=== PATIENT | female | born 2000 | race Caucasian/White ===

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

== ENCOUNTER 2021-01-25 19:52 | Emergency (ER) | payer MEDICAID, SELFPAY ==
[2021-01-25 19:54] VITALS: BP 113/82; PULSE 120; RESP 18; TEMP 36.8; O2SAT 98; BMI 26.5
[2021-01-25 22:55] LABS: Basophils % 0.4 %; Eosinophils # 0.1 10^3/uL (0.0-0.8); Eosinophils % 0.6 %; Hematocrit 38.3 % (37.0-47.0); Hemoglobin 12.4 g/dL (11.5-15.3); Lymphocytes # 0.8 10^3/uL (1.5-6.5); Lymphocytes % 10.3 %; Mean Corpuscular HGB Conc 32.4 g/dL (30.0-36.0); Mean Corpuscular Hemoglobin 26.6 pg (28.0-34.0); Mean Platelet Volume 10.5 fL (7.4-10.4); Monocytes # 0.4 10^3/uL (0.2-0.9); Monocytes % 4.6 %; Neutrophils # 6.81 10^3/uL (1.8-8.0); Neutrophils % 83.9 %; Nucleated Red Blood Cells % 0 %; Platelet Count 259 10^3/cmm (130-400); Red Blood Count 4.67 10^6/uL (4.1-5.3); Red Cell Distribution Width 17.2 % (12.1-15.1); White Blood Count 8.1 10^3/uL (4.5-13.0)
[2021-01-25 23:18] LABS: Alanine Aminotransferase 38 U/L (0-33); Albumin Level 3.8 g/dL (3.5-5.2); Alkaline Phosphatase 69 IU/L (35-105); Anion Gap 15.5 (5-19); Aspartate Amino Transferase 43 U/L (0-32); Blood Urea Nitrogen 4 mg/dL (6-20); Calcium 8.8 mg/dL (8.5-10.5); Carbon Dioxide 22 mmol/L (22-29); Chloride 101 mmol/L (98-107); Globulin 3.3 g/dL (1.3-4.6); Glomerular Filtration Rate 286.6 mL/min (90-130); Glucose 76 mg/dL (65-115); Lipase 11 U/L (13-60); Osmolality Calculated 276 mOsm/kg (285-295); Potassium 3.5 mmol/L (3.5-5.1); Sodium 135 mmol/L (136-145); Total Bilirubin 0.8 mg/dL (0.15-1.2); Total Protein 7.1 g/dL (6.6-8.7)
[2021-01-25 23:22] VITALS: BP 113/64; PULSE 111; RESP 20; O2SAT 98
--- NOTE | 2021-01-25 23:32 | ED_ITS ---
HPI - Nausea/Vomiting/Diarrhea General: Chief complaint: Nausea/Vomiting/Diarrhea Stated complaint: SOB/N/V Time Seen by Provider: 01/25/21 21:41 History of Present Illness: HPI Narrative: Patient is a 20-year-old ,4 female that is currently 14 weeks but is having some lower abdominal pain, nausea/vomiting and shortness of breath. 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 Yesterday patient received the first COVID-19 vaccination. Today she woke up and was nauseous and vomited multiple times throughout the day today. She has not been able to keep anything down all day. She also states she has experienced some mild shortness of breath today as well. Abdominal pain is located bilaterally in the lower abdomen/pelvic region. Denies any vaginal bleeding or discharge. Denies fever, chills, chest pain, cough, bladder or bowel symptoms. Associated nausea: Yes Associated symtoms: Reports nausea; Denies change in vision, chest pain, dysuria, fatigue, headache(s) or palpitations Review of Systems Const: Denies: fever(s), chills or fatigue Eyes: Denies: change in vision or eye discomfort ENMT: Denies: throat pain, odynophagia, nasal discharge or nasal congestion Card: Denies: chest pain, palpitations, edema, swelling of feet/ankles, dyspnea on exertion or orthopnea Resp: Reports: dyspnea; Denies: productive cough or non-productive cough GI: Reports: abdominal pain (bilateral lower abdomen), nausea, vomiting and GI cramping; Denies: diarrhea, constipation or hematochezia : Denies: flank pain, dysuria, hematuria, genital lesions, vaginal bleeding or vaginal discharge Musc: Denies: neck pain, back pain or extremity swelling Skin/Breast: Denies: rash or new lesions Neuro: Denies: headache(s), numbness in extremities or weakness in extremities PFSH ED PFSH: Surgical History No pertinent past surgical history Family History Denies family history of Colon cancer Ovarian cancer Diabetes Heart disease Hypercholesteremia Breast cancer Hypertension Uterine cancer Stroke Social History Smoking and tobacco status: current every day smoker e-cigarettes E-Cigarette Details: vaporizer device and with nicotine Quit status (tobacco): not considering quitting Second hand smoke exposure: No Alcohol intake: never Adopted: Yes Lives independently: Yes Household members: other Housing: Manufactured/Mobile home Highest education level completed: 12th Grade, No Diploma service: No Current occupational status: unemployed Pets and animals: Yes Sexually active: Yes Current gender identity: Female Special sharon needs: No Physical Exam Const: COMMON NORMALS: no acute distress, patient oriented x3, healthy appea ring and alert GENERAL APPEARANCE: cooperative and comfortable HENMT: COMMON NORMALS: normocephalic HEAD & SCALP: normocephalic MOUTH: Normal oral and palatal mucosa present THROAT: posterior oropharynx normal and uvula midline Neck/C-Spine: COMMON NORMALS: supple GENERAL: Yes normal visual inspection Resp: COMMON NORMALS: normal respiratory effort, No retractions, No use of accessory muscles and clear to auscultation bilaterally AUSCULTATION: clear to auscultation bilaterally Cardio: COMMON NORMALS: regular rate, regular rhythm, S1 normal heart sound present, S2 normal heart sound present, No gallops present (Cardio), No clicks present (Cardio), No murmurs present (Cardio) and Peripheral pulses 2+ throughout RATE: regular rate RHYTHM: regular rhythm HEART SOUNDS: S1 normal heart sound present and S2 normal heart sound present PERIPHERAL PULSES: Peripheral pulses 2+ throughout GI: COMMON NORMALS: Normal to inspection, nondistended, normoactive bowel sounds present, Soft to palpation, non-tender and no masses PALPATION: Yes Soft to palpation : COMMON NORMALS: Yes no CVA tenderness BLADDER/KIDNEY EXAM: Yes no CVA tenderness Back/Pelvis: COMMON NORMALS: no CVA tenderness Extremity: COMMON NORMALS: normal to inspection Neuro: COMMON NORMALS: patient oriented x3 and moves all extremities SENSORIUM/ORIENTATION: Yes alert Skin: GENERAL SKIN EXAM: dry skin Course ED course: Dr. Veras performed a bedside ultrasound on patient and it showed IUP with a heart rate of 146. Vital Signs: Vital signs: Vital Signs Temperature 98.3 F 01/25/21 19:54 Pulse Rate 110 H 01/26/21 00:59 Respiratory Rate 18 01/26/21 00:59 Blood Pressure 120/74 01/26/21 00:59 Pulse Oximetry 100 01/26/21 00:59 MDM - Nausea/Vomiting/Diarrhea MDM Narrative: Medical decision making narrative: Patient is a 20-year-old female who is currently 14 weeks and comes to the ED with nausea vomiting and lower abdominal cramping pain. Patient says that yesterday she received her first COVID-19 vaccine dose and today she woke up with nausea and vomiting had trouble keeping anything down. She is also complaining of having some lower abdominal cramping pain but denies any vaginal bleeding or discharge. Vital stable. Patient appears in no acute distress or pain and is sitting comfortably on exam bed monitor the room. The rest of exam is benign. CBC, CMP are unremarkable. UA was positive for trichomonas. Patient denies any vaginal bleeding, vaginal discharge, genital lesions. Bedside ultrasound performed by Dr. Veras showed an intrauterine with a heart rate of around 146 bpm. While here in the ED patient was given single dose of Flagyl to treat tri chomonas and was told that she needs to have her partner treated as well. Some of her symptoms could be due to the COVID-19 shot, since its common that people do not feel that great the next day after getting shot. She was also given IV fluids and Reglan and her nausea improved and she was able to keep p.o. fluids down. Patient was diagnosed with trichomonal vaginitis and and nausea and vomiting during and discharged home. I sent patient home with a prescription for Reglan to help with nausea. She was told to follow-up with her OB doctor in the next 3 to 5 days for further evaluation. Return ED precautions given. Patient understood and agree with plan. Lab Data: Attestation: I reviewed the patient's lab results. Labs: Lab Results 01/25/21 01/25/21 01/25/21 22:28 22:28 22:50 WBC 8.1 10^3/uL 10^3/ uL (4.5-13.0) RBC 4.67 10^6/uL 10^6 /uL (4.1-5.3) Hgb 12.4 g/dL g/dL (11.5-15.3) Hct 38.3 % % (37.0-47.0) MCV 82.0 fl fl (81-99) MCH 26.6 pg L pg (28.0-34.0) MCHC 32.4 g/dL g/dL (30.0-36.0) RDW 17.2 % H % (12.1-15.1) Plt Count 259 10^3/cmm 10^3 /cmm (130-400) MPV 10.5 fL H fL (7.4-10.4) Neut % (Auto) 83.9 % % Lymph % (Auto) 10.3 % % [place] % (Auto) 4.6 % % Eos % (Auto) 0.6 % % Baso % (Auto) 0.4 % % Neut # (Auto) 6.81 10^3/uL 10^3 /uL (1.8-8.0) Lymph # (Auto) 0.8 10^3/uL L 10^ 3/uL (1.5-6.5) [place] # (Auto) 0.4 10^3/uL 10^3/ uL (0.2-0.9) Eos # (Auto) 0.1 10^3/uL 10^3/ uL (0.0-0.8) Baso # (Auto) 0.0 10^3/uL 10^3/ uL (0.0-0.1) Nucleated RBC % (a uto) 0 % % Nucleated RBCs # 0.0 /100WBC /100W BC Sodium 135 mmol/L L mmol /L (136-145) Potassium 3.5 mmol/L mmol/L (3.5-5.1) Chloride 101 mmol/L mmol/L (98-107) Carbon Dioxide 22 mmol/L mmol/L (22-29) Anion Gap 15.5 (5-19) BUN 4 mg/dL L mg/dL (6-20) Creatinine 0.3 mg/dL L mg/dL (0.5-0.9) GFR Calculation 286.6 mL/min H mL /min (90-130) Glucose 76 mg/dL mg/dL (65-115) Calculated Osmolal ity 276 mOsm/kg L mOs m/kg (285-295) Calcium 8.8 mg/dL mg/dL (8.5-10.5) Total Bilirubin 0.8 mg/dL mg/dL (0.15-1.2) AST 43 U/L H U/L (0-32) ALT 38 U/L H U/L (0-33) Alkaline Phosphata se 69 IU/L IU/L (35-105) Total Protein 7.1 g/dL g/dL (6.6-8.7) Albumin 3.8 g/dL g/dL (3.5-5.2) Globulin 3.3 g/dL g/dL (1.3-4.6) Lipase 11 U/L L U/L (13-60) Urine Color Yellow (Yellow) Urine Appearance Hazy A (CLEAR) Urine pH 6.5 (5-7) Ur Specific Gravit y 1.020 (1.005-1.030) Urine Protein Neg (Negative) Urine Glucose (UA) Norm (Normal) Urine Ketones 2+ H (Negative) Urine Blood 2+ H (Negative) Urine Nitrate Negative (Negative) Urine Bilirubin 1+ H (Negative) Urine Urobilinogen 4 mg/dL H mg/dL (Negative) Ur Leukocyte Olga ase 2+ H (Negative) Urine RBC 0-4 /hpf H /hpf (0-2) Urine WBC >100 /hpf H /hpf (0-5) Ur Squamous Epith Cells 15-25 /hpf H /hpf (0-5) Amorphous Sediment Not Reportable Urine Bacteria 1+ /hpf H /hpf (NONE) Urine Trichomonas 2+ /hpf H /hpf Discharge Plan Discharge Patient Disposition: Home Clinical Impression: Nausea and vomiting during Trichomonal vaginitis in Qualifiers: Trimester: second trimester Qualified Code(s): O23.592 - Infection of other part of genital tract in , second trimester Condition: Stable Prescriptions: New Reglan 10 mg tablet 10 mg PO Q6H PRN (Reason: nausea and vomiting) Qty: 12 RF: 0 No Action prednisone 20 mg tablet 40 mg PO DAILY Qty: 10 RF: 0 sulfamethoxazole-trimethoprim [Bactrim DS] 800-160 mg tablet 1 tab PO BID Qty: 20 RF: 0 Discharge Orders: Discharge ED (Routine); Ordered 01/26/21 Ordered By: Yoandy Moser Referrals: Ksenia Salmon MD [Primary Care Provider] - Discharge Diet: Regular Discharge Activity: Resume usual activity Patient Instructions: Nausea and Vomiting in (ED), Trichomoniasis (ED) Activity Restrictions/Additional Instructions: Follow-up with OB provider in the next 3 to 5 days for reevaluation. Make sure you have your partner get tested and treated for trichomonas as well. Take medications as prescribed. Make sure you drink plenty fluids and stay hydrated. Return to the ER or your medical provider if condition worsens. Please read and understand discharge instructions. Thank you for choosing [facility] for your healthcare needs today. Please realize this is an emergency room and that we are providing you with a medical screening exam and this may not be complete and all inclusive of all the testing and or work up that you may need to determine your ailment or severity of your illness. It is very important that you follow up as instructed or that you return to the Emergency Department should you have concerns or if your condition changes or worsens in any way. Coding Level of Care Code ED E Commerce Solution Architect for Yaz Elizalde Exam Comprehensive
[2021-01-25 23:36] LABS: Add Urine Microscopic? YES; Bacteria Urine 1+ /hpf; Bilirubin Urine 1+ (Negative); Blood Urine 2+ (Negative); Glucose Urine UA Norm (Normal); Ketones Urine 2+ (Negative); Leukocyte Esterase Urine 2+ (Negative); Nitrate Urine Negative (Negative); Protein Urine Neg (Negative); RBC Urine 0-4 /hpf (0-2); Trichomonas Urine 2+ /hpf; Urine Appearance Hazy (CLEAR); Urine Color Yellow (Yellow); Urobilinogen Urine 4 mg/dL (Negative); WBC Urine >100 /hpf (0-5); pH Urine 6.5 (5-7)
[2021-01-25 23:37] LABS: Add Urine Culture? No; Squamous Epithelial Cell Urine 15-25 /hpf (0-5)
[2021-01-25] MEDS: metoclopramide 5 mg/mL SDV 2 mL 10 MG IVP (23:42)
[2021-01-25] MEDS: sodium chloride 0.9% 1,000 ML 999 ML IV (23:42)
[2021-01-25 23:44] VITALS: BP 120/71; PULSE 108; RESP 18; O2SAT 100
[2021-01-26 00:59] VITALS: BP 120/74; PULSE 110; RESP 18; O2SAT 100
== END 2021-01-26 00:50 | disposition home or self-care (01) ==
PROVIDERS: Emergency Medicine; Emergency Provider Physician Assistant; PCP Family Medicine
DX: R11.2 Nausea with vomiting, unspecified (principal); O23.592 Infection of other part of genital tract in pregnancy, second trimester; Z3A.14 14 weeks gestation of pregnancy; F17.290 Nicotine dependence, other tobacco product, uncomplicated
CPT/HCPCS: 80053; 81001; 83690; 85025; 96361; 96374; 99284; J2765; J7030

== ENCOUNTER 2021-02-10 07:41 | Emergency (ER) | payer MEDICAID, SELFPAY ==
[2021-02-10 08:06] VITALS: BP 115/58; PULSE 119; RESP 18; TEMP 37.1; O2SAT 95; BMI 23.3
--- NOTE | 2021-02-10 08:21 | ED_ITS ---
HPI - SOB/Dyspnea General: Chief Complaint: Shortness of Breath/Dyspnea Stated Complaint: 16 WKS PREG/GENITAL HERPES BREAKOUT Time Seen by Provider: 02/10/21 08:03 History of Present Illness: HPI Narrative: SOB increasing over the best few days due to cough and herpes outbreak on genitals MD elicited complaint: shortness of breath and cough Timing: intermittent Severity: moderate Exacerbating factors: nothing Associated symptoms: Reports no associated symptoms; Deny chest pain or fever(s) Review of Systems Const: Denies: fever(s) Card: Denies: chest pain PFSH ED PFSH: Surgical History No pertinent past surgical history Family History Denies family history of Colon cancer Ovarian cancer Diabetes Heart disease Hypercholesteremia Breast cancer Hypertension Uterine cancer Stroke Social History Smoking and tobacco status: current every day smoker e-cigarettes E-Cigarette Details: vaporizer device and with nicotine Quit status (tobacco): not considering quitting Second hand smoke exposure: No Alcohol intake: never Adopted: Yes Lives independently: Yes Household members: other Housing: Manufactured/Mobile home Highest education level completed: 12th Grade, No Diploma service: No Current occupational status: unemployed Pets and animals: Yes Sexually active: Yes Current gender identity: Female Special sharon needs: No Female Reproductive History: Date of last menstrual period: 10/18/20 Physical Exam Const: COMMON NORMALS: no acute distress, patient oriented x3, no limitations and alert GENERAL APPEARANCE: cooperative and comfortable ORIENTATION/CONSCIOUSNESS: Yes awake, Yes oriented to person, Yes oriented to place and Yes oriented to time HENMT: COMMON NORMALS: normocephalic, atraumatic, external ears normal, EAC's normal, TM's normal bilaterally and Normal external nose present HEAD & SCALP: normal to inspection, normocephalic and atraumatic FACE & SINUS: normal facial exam, sinuses nontender and face symmetric NOSE: Normal external nose present, Normal nares present and No nasal discharge present EXTERNAL EAR: Yes external ears normal EXTERNAL AUDITORY CANAL: EAC's normal TYMPANIC MEMBRANE: TM's normal bilaterally MOUTH: Normal oral and palatal mucosa present, lip normal and tongue normal THROAT: posterior oropharynx normal, tonsils normal and uvula midline Eye: COMMON NORMALS: Equal, round and reactive pupils present, EOMs intact bilaterally and conjunctivae normal GENERAL EYE: appearance normal, both eyes and all related structures and normal light reflex EYELID: eyelids normal CONJUNCTIVA: Yes conjunctivae normal PUPIL: Yes Equal, round and reactive pupils present EOM: Yes EOM abnormal DIRECT OPHTHALMOSCOPY: Yes normal light reflex Neck/C-Spine: COMMON NORMALS: full ROM, no lymphadenopathy, supple, no meningeal signs, no JVD and Thyroid normal GENERAL: Yes normal visual inspection THYROID: Thyroid normal CERVICAL SPINE: Yes cervical ROM normal and Yes normal cervical lordosis Lymph: LYMPHATIC: no lymphadenopathy noted Chest: COMMONS NORMALS: normal inspection of the chest Resp: COMMON NORMALS: normal respiratory effort and clear to auscultation b ilaterally EFFORT & INSPECTION: Yes able to speak in complete sentences AUSCULTATION: clear to auscultation bilaterally and diminished lung sounds Cardio: COMMON NORMALS: no JVD, regular rate, regular rhythm, S1 normal heart sound present, S2 normal heart sound present, No gallops present (Cardio), No clicks present (Cardio), No murmurs present (Cardio), No rub (Cardio) and Peripheral pulses 2+ throughout RATE: regular rate RHYTHM: regular rhythm HEART SOUNDS: S1 normal heart sound present and S2 normal heart sound present PERIPHERAL PULSES: Peripheral pulses 2+ throughout GI: COMMON NORMALS: Normal to inspection, nondistended, normoactive bowel sounds present, Soft to palpation, non-tender and no masses PALPATION: Yes Soft to palpation : COMMON NORMALS: Yes no CVA tenderness and Yes normal external appearance BLADDER/KIDNEY EXAM: Yes no CVA tenderness Back/Pelvis: COMMON NORMALS: no CVA tenderness, thoracic and lumbar spine normal to inspection, no thoracic nor lumbar tenderness and thoraco-lumbar ROM normal Extremity: COMMON NORMALS: normal to inspection, full ROM, capillary refill normal, no joint enlargement, no clubbing, cyanosis or edema, no calf tenderness and no pedal edema GENERAL: Yes normal exam except as noted Neuro: COMMON NORMALS: patient oriented x3, moves all extremities, no focal motor deficits, no sensory deficits noted and gait normal SENSORIUM/ORIENTATION: Yes alert, Yes oriented to person, Yes oriented to place and Yes oriented to time MENINGEAL SIGNS: Yes no meningeal signs Psych: COMMON NORMALS: mental status grossly normal, Normal thought process present, cooperative, normal affect, speech normal and activity/motor behavior normal SPEECH: Yes normal speech THOUGHT PROCESS: Normal thought process present Skin: COMMON NORMALS: no rashes or lesions noted, no wounds and turgor normal GENERAL SKIN EXAM: no rashes or lesions noted and turgor normal Course ED course: Pt presents to ER with complaints of genital herpes outbreak and increase in cough and SOB. 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 She is nervous that she may have another miscarriage as she has had 4 previously. Lung sounds are clear but diminished. I will call OB director of online merchandising to discuss herpes treatment plan and suppression therapy as well as CXR vs treatment as pt has recently been on antibiotics for UTI but is unsure of what kind. Awaiting labs and UA. Reevaluation(s): Reevaluation #1: UA reveals UTI remains with 2 plus leukoesterase and positive trichamoniasis. CXR is normal. Awaiting cbc and cmp. Time: 09:34 Reevaluation #2: Dr. Salmon is pt OB; instructed that we are treating for herpes outbreak, STD (plus partner), and UTI. We will DC with close follow up with her OB in the next week. Time: 10:07 Vital Signs: Vital signs: Vital Signs Temperature 98.7 F 02/10/21 08:25 Pulse Rate 89 02/10/21 09:45 Respiratory Rate 16 02/10/21 09:45 Blood Pressure 128/61 02/10/21 09:30 Pulse Oximetry 98 02/10/21 09:45 MDM - SOB/Dyspnea Lab Data: Labs: Lab Results 02/10/21 02/10/21 09:00 09:15 Sodium 134 mmol/L L mmol /L (136-145) Potassium 3.6 mmol/L mmol/L (3.5-5.1) Chloride 103 mmol/L mmol/L (98-107) Carbon Dioxide 18 mmol/L L mmol/ L (22-29) Anion Gap 16.6 (5-19) BUN 2 mg/dL L mg/dL (6-20) Creatinine 0.2 mg/dL L mg/dL (0.5-0.9) GFR Calculation 457.6 mL/min H mL /min (90-130) Glucose 77 mg/dL mg/dL (65-115) Calculated Osmolal ity 273 mOsm/kg L mOs m/kg (285-295) Calcium 7.6 mg/dL L mg/dL (8.5-10.5) Total Bilirubin 0.6 mg/dL mg/dL (0.15-1.2) AST 35 U/L H U/L (0-32) ALT 33 U/L U/L (0-33) Alkaline Phosphata se 85 IU/L IU/L (35-105) Total Protein 5.9 g/dL L g/dL (6.6-8.7) Albumin 2.9 g/dL L g/dL (3.5-5.2) Globulin 3.0 g/dL g/dL (1.3-4.6) Urine Color Yellow (Yellow) Urine Appearance Hazy A (CLEAR) Urine pH 5 (5-7) Ur Specific Gravit y 1.020 (1.005-1.030) Urine Protein Neg (Negative) Urine Glucose (UA) Norm (Normal) Urine Ketones Negative (Negative) Urine Blood Neg (Negative) Urine Nitrate Negative (Negative) Urine Bilirubin 1+ H (Negative) Urine Urobilinogen 8 mg/dL H mg/dL (Negative) Ur Leukocyte Olga ase 2+ H (Negative) Urine RBC 5-10 /hpf H /hpf (0-2) Urine WBC 5-10 /hpf H /hpf (0-5) Ur Squamous Epith Cells 15-25 /hpf H /hpf (0-5) Amorphous Sediment Not Reportable Urine Bacteria 1+ /hpf H /hpf (NONE) Urine Trichomonas 2+ /hpf H /hpf Imaging Data^: CXR: Radiologist's impression: [address] [address] XRay Report Signed Patient: Jm Chaney Unit #: [id number] : 2000 Acct#:[id number] Age/Sex: 20 / F ADM Date: 02/10/21 Loc: ER Room/Bed: Attending Dr: Ordering Provider/Ordering MD: Flaquita Snowden NP Date of Service: 02/10/21 Procedure(s): XR chest 1V portable [id number] Accession Number(s): [id number] Report Number: [id number] WS: [id number] Exam: XR chest 1V portable [id number] Date/Time of Exam: 02/10/2021 8:53 AM Reason For Exam: SOB Comparison 06/13/2007. Findings: The lungs are clear and fully expanded. Costophrenic angles are sharp. No infiltrates. Bronchovascular relief appears normal. Cardiac silhouette is unremarkable. Bony elements are intact. XR/XR chest 1V portable [id number] IMPRESSION: Unremarkable chest radiograph. Dictated By: Zi Bean DO Signed By: Zi Bean DO Signed Date/Time: 02/10/21909 DD/ 9 Discharge Plan Discharge Condition: Stable Prescriptions: New nitrofurantoin monohyd/m-cryst [Macrobid] 100 mg capsule 100 mg PO BID 7 Days Qty: 14 RF: 0 metronidazole 500 mg tablet 500 mg PO Q8H 7 Days Qty: 21 RF: 0 acyclovir 800 mg tablet 800 mg PO BID 14 Days Qty: 28 RF: 0 No Action prednisone 20 mg tablet 40 mg PO DAILY Qty: 10 RF: 0 sulfamethoxazole-trimethoprim [Bactrim DS] 800-160 mg tablet 1 tab PO BID Qty: 20 RF: 0 Reglan 10 mg tablet 10 mg PO Q6H PRN (Reason: nausea and vomiting) Qty: 12 RF: 0 Referrals: Ksenia Salmon MD [Primary Care Provider] - Discharge Diet: Usual diet Discharge Activity: Resume usual activity Activity Restrictions/Additional Instructions: INCREASE WATER-Your labs show you are not getting adequate water intake. Stay away from sodas and teas. Stand Alone Forms: Work/School Release Coding Level of Care Code ED Shift Production Associate for Chg Fwd Exam Comprehensive
[2021-02-10 08:25] VITALS: BP 117/57; PULSE 115; RESP 17; TEMP 37.1; O2SAT 94
--- NOTE | 2021-02-10 08:53 | XR_ITS ---
WS: [id number] Exam: XR chest 1V portable [id number] Date/Time of Exam: 02/10/2021 8:53 AM Reason For Exam: SOB Comparison 06/13/2007. Findings: The lungs are clear and fully expanded. Costophrenic angles are sharp. No infiltrates. Bronchovascula r relief appears normal. Cardiac silhouette is unremarkable. Bony elements are intact. XR/XR chest 1V portable [id number] IMPRESSION: Unremarkable chest radiograph.
[2021-02-10 09:11] LABS: Add Urine Microscopic? YES; Bilirubin Urine 1+ (Negative); Blood Urine Neg (Negative); Glucose Urine UA Norm (Normal); Ketones Urine Negative (Negative); Leukocyte Esterase Urine 2+ (Negative); Nitrate Urine Negative (Negative); Protein Urine Neg (Negative); Urine Appearance Hazy (CLEAR); Urine Color Yellow (Yellow); Urobilinogen Urine 8 mg/dL (Negative); pH Urine 5 (5-7)
[2021-02-10 09:23] LABS: Bacteria Urine 1+ /hpf; Squamous Epithelial Cell Urine 15-25 /hpf (0-5); Trichomonas Urine 2+ /hpf
[2021-02-10 09:24] LABS: Add Urine Culture? No
[2021-02-10 09:24] LABS: Basophils # 0.1 10^3/uL (0.0-0.1); Basophils % 0.7 %; Eosinophils # 0.1 10^3/uL (0.0-0.8); Eosinophils % 0.7 %; Hematocrit 31.5 % (37.0-47.0); Lymphocytes % 51.9 %; Mean Corpuscular HGB Conc 31.7 g/dL (30.0-36.0); Mean Corpuscular Hemoglobin 26.3 pg (28.0-34.0); Mean Corpuscular Volume 82.9 fl (81-99); Mean Platelet Volume 9.5 fL (7.4-10.4); Monocytes # 0.6 10^3/uL (0.2-0.9); Monocytes % 4.3 %; Neutrophils # 5.63 10^3/uL (1.8-8.0); Nucleated Red Blood Cells % 0 %; Platelet Count 283 10^3/cmm (130-400); Red Cell Distribution Width 18.9 % (12.1-15.1); White Blood Count 13.4 10^3/uL (4.5-13.0)
[2021-02-10 09:30] VITALS: BP 128/61; PULSE 109; RESP 19; O2SAT 97
[2021-02-10] MEDS: acyclovir 800 mg Tablet PO (09:32)
[2021-02-10 09:45] VITALS: PULSE 88; PULSE 89; RESP 16; O2SAT 97; O2SAT 98
[2021-02-10 09:47] LABS: Alanine Aminotransferase 33 U/L (0-33); Albumin Level 2.9 g/dL (3.5-5.2); Alkaline Phosphatase 85 IU/L (35-105); Anion Gap 16.6 (5-19); Aspartate Amino Transferase 35 U/L (0-32); Blood Urea Nitrogen 2 mg/dL (6-20); Calcium 7.6 mg/dL (8.5-10.5); Carbon Dioxide 18 mmol/L (22-29); Chloride 103 mmol/L (98-107); Glomerular Filtration Rate 457.6 mL/min (90-130); Glucose 77 mg/dL (65-115); Osmolality Calculated 273 mOsm/kg (285-295); Potassium 3.6 mmol/L (3.5-5.1); Sodium 134 mmol/L (136-145); Total Bilirubin 0.6 mg/dL (0.15-1.2); Total Protein 5.9 g/dL (6.6-8.7)
[2021-02-10 10:15] LABS: Slide Review Slide Review Perform
[2021-02-10 10:16] VITALS: BP 121/67; PULSE 117; RESP 18; O2SAT 97
[2021-02-10] MEDS: metroNIDAZOLE 500 MG Tablet PO (10:17)
[2021-02-10 11:02] VITALS: BP 132/68; PULSE 108; RESP 18; O2SAT 94
[2021-02-11 14:23] LABS: Coronavirus Test Green County Not Detected
== END 2021-02-10 11:03 ==
PROVIDERS: Emergency Provider Nurse Practitioner Family; PCP Family Medicine
DX: O26.892 Other specified pregnancy related conditions, second trimester (principal); R05.9 Cough, unspecified; O98.312 Other infections with a predominantly sexual mode of transmission complicating pregnancy, second trimester; A60.00 Herpesviral infection of urogenital system, unspecified; Z3A.16 16 weeks gestation of pregnancy; Z20.822 Contact with and (suspected) exposure to COVID-19
CPT/HCPCS: 71045; 80053; 81001; 85025; 87635; 94640; 99283; J7611; J8499

== ENCOUNTER 2021-02-27 00:10 | Emergency (ER) | payer MEDICAID, SELFPAY ==
[2021-02-27 00:32] VITALS: BP 115/69; PULSE 81; RESP 18; O2SAT 96; BMI 24.7
--- NOTE | 2021-02-27 02:16 | W.ED.SOB ---
HPI - SOB/Dyspnea General: Chief Complaint: Shortness of Breath/Dyspnea Stated Complaint: fever,cough,N/V Time Seen by Provider: 02/27/21 02:16 History of Present Illness: HPI Narrative: 20-year-old female comes in [facility] with complaints of sinus pressure and cough for the last 2 weeks. Patient was evaluated and treated for viral infection 2 weeks ago. At that time patient also had herpes simplex genital infection. Patient is about 16 weeks. Patient reports no improvement in sinus and cough symptoms since her evaluation 2 weeks ago. Patient came in [facility] for further evaluation and treatment. Review of Systems General: Reports: 10 or more systems reviewed and unremarkable except in HPI and below ENMT: Reports: nasal congestion Resp: Reports: non-productive cough PFSH ED PFSH: Surgical History No pertinent past surgical history Family History Denies family history of Colon cancer Ovarian cancer Diabetes Heart disease Hypercholesteremia Breast cancer Hypertension Uterine cancer Stroke Social History Smoking and tobacco status: current every day smoker e-cigarettes E-Cigarette Details: vaporizer device and with nicotine Quit status (tobacco): not considering quitting Second hand smoke exposure: No Alcohol intake: never Adopted: Yes Lives independently: Yes Household members: other Housing: Manufactured/Mobile home Highest education level completed: 12th Grade, No Diploma service: No Current occupational status: unemployed Pets and animals: Yes Sexually active: Yes Current gender identity: Female Special sharon needs: No Female Reproductive History: Date of last menstrual period: 10/18/20 Physical Exam Const: COMMON NORMALS: no acute distress and patient oriented x3 GENERAL APPEARANCE: cooperative HENMT: COMMON NORMALS: normocephalic and TM's normal bilaterally HEAD & SCALP: normal to inspection and normocephalic NOSE: Nasal discharge present TYMPANIC MEMBRANE: TM's normal bilaterally MOUTH: Normal oral and palatal mucosa present THROAT: posterior oropharynx normal Eye: GENERAL EYE: appearance normal, both eyes and all related structures Neck/C-Spine: COMMON NORMALS: full ROM Lymph: LYMPHATIC: no lymphadenopathy noted Chest: COMMONS NORMALS: normal inspection of the chest Resp: COMMON NORMALS: normal respiratory effort EFFORT & INSPECTION: Yes able to speak in complete sentences AUSCULTATION: rhonchi Cardio: COMMON NORMALS: regular rate and regular rhythm RATE: regular rate RHYTHM: regular rhythm GI: COMMON NORMALS: non-tender : COMMON NORMALS: Yes no CVA tenderness BLADDER/KIDNEY EXAM: Yes no CVA tenderness Back/Pelvis: COMMON NORMALS: no CVA tenderness and thoracic and lumbar spine normal to inspection Extremity: COMMON NORMALS: normal to inspection Neuro: COMMON NORMALS: patient oriented x3 and moves all extremities Psych: COMMON NORMALS: mental status grossly normal and cooperative Skin: COMMON NORMALS: no rashes or lesions noted GENERAL SKIN EXAM: no rashes or lesions noted Course Vital Signs: Vital signs: Vital Signs Pulse Rate 81 02/27/21 00:32 Respiratory Rate 18 02/27/21 00:32 Blood Pressure 115/69 02/27/21 00:32 Pulse Oximetry 96 02/27/21 00:32 MDM - SOB/Dyspnea MDM Narrative: Medical decision making narrative: Patient comes in today with complaints of persistent cough and congestion for 2 weeks. On exam patient is alert and oriented. Skin is warm and dry. Respirations are even. Lungs have some anterior coarse breath sounds. Patient has sinus pressure on palpation. Bilateral tympanic membranes are normal. Differential diagnosis includes rhinosinusitis, bronchitis, viral syndrome. We will treat for bacterial rhinosinusitis since patient has been ill for 10 days or greater. Patient will be given azithromycin 500 mg and then a dose of promethazine with codeine tonight. Patient can then continue with the medications as directed for the next 5 days. Encourage plenty of fluids and follow-up with primary care for further treatment and evaluation. Patient reported understanding of care plan and need for follow-up or return to the ER. Discharge Plan Discharge Patient Disposition: Home Clinical Impression: Acute rhinosinusitis, Bronchitis Condition: Stable Prescriptions: New azithromycin 250 mg tablet 250 mg PO DAILY 4 Days Qty: 4 RF: 0 promethazine-codeine 6.25-10 mg/5 mL syrup 5 ml PO Q6H PRN (Reason: cough and congestion) Qty: 118 RF: 0 No Action prednisone 20 mg tablet 40 mg PO DAILY Qty: 10 RF: 0 sulfamethoxazole-trimethoprim [Bactrim DS] 800-160 mg tablet 1 tab PO BID Qty: 20 RF: 0 Reglan 10 mg tablet 10 mg PO Q6H PRN (Reason: nausea and vomiting) Qty: 12 RF: 0 Discharge Orders: Discharge ED (Routine); Ordered 02/27/21 Ordered By: Duke Munguia Referrals: Ksenia Salmon MD [Primary Care Provider] - Discharge Diet: Usual diet Discharge Activity: Increase activity as tolerated Patient Instructions: Rhinosinusitis (ED), Opioid Safety Activity Restrictions/Additional Instructions: Drink plenty of water. Take antibiotic as directed. Use acetaminophen as needed for fever and discomfort. Use promethazine with codeine for cough and congestion. Follow-up with primary care as needed for further instructions. Return to the ER for new concerns. Coding Level of Care Code ED Rental Boats Caretaker for Yaz Elizalde
[2021-02-27] MEDS: promethazine-cod syrup 6.25-10mg/5 mL UDC PO (02:35)
[2021-02-27] MEDS: azithromycin 250 mg Tablet 500 MG PO (02:35)
[2021-02-27 11:47] LABS: Adenovirus Not Detected (NOT DETECT); Chlamydia Pneumoniae Not Detected (NOT DETECT); Coronavirus 229E,HKU1,NL63,OC4 Not Detected (NOT DETECT); Human Metapneumovirus Detected (NOT DETECT); Human Rhinovirus/Enterovirus Not Detected (NOT DETECT); Influenza A Not Detected (NOT DETECT); Influenza A H1 Not Detected (NOT DETECT); Influenza A H1-2009 Not Detected (NOT DETECT); Influenza A H3 Not Detected (NOT DETECT); Influenza B Not Detected (NOT DETECT); Mycoplasma Pneumoniae Not Detected (NOT DETECT); Parainfluenza Virus Type 1 Not Detected (NOT DETECT); Parainfluenza Virus Type 2 Not Detected (NOT DETECT); Parainfluenza Virus Type 3 Not Detected (NOT DETECT); Parainfluenza Virus Type 4 Not Detected (NOT DETECT); Respiratory Syncytial Virus A Not Detected (NOT DETECT); Respiratory Syncytial Virus B Not Detected (NOT DETECT); SARS-COV-2 Not Detected (NOT DETECT)
== END 2021-02-27 02:39 | disposition home or self-care (01) ==
PROVIDERS: Emergency Provider Nurse Practitioner Family; PCP Family Medicine
DX: J01.90 Acute sinusitis, unspecified (principal); J40 Bronchitis, not specified as acute or chronic; F17.290 Nicotine dependence, other tobacco product, uncomplicated; Z20.822 Contact with and (suspected) exposure to COVID-19
CPT/HCPCS: 87635; 99283; Q0144

== ENCOUNTER 2021-04-15 21:22 | Outpatient (CLI) | payer MEDICAID, SELFPAY ==
[2021-04-15] VITALS (10 sets, daily range): BP systolic 90–117; BP diastolic 51–62; PULSE 92–117; RESP 16; TEMP 36.3; BMI 25.3
[2021-04-15 22:47] LABS: Bilirubin Urine Neg (Negative); Blood Urine 3+ (Negative); Glucose Urine UA Norm (Normal); Ketones Urine Negative (Negative); Leukocyte Esterase Urine 2+ (Negative); Nitrate Urine Negative (Negative); Protein Urine Neg (Negative); Urine Color Yellow (Yellow); Urobilinogen Urine 1 mg/dL (Negative); pH Urine 5 (5-7)
[2021-04-15 22:48] LABS: Add Urine Culture? No; Bacteria Urine 3+ /hpf; RBC Urine 25-40 /hpf (0-2); Squamous Epithelial Cell Urine 25-40 /hpf (0-5); WBC Urine 40-55 /hpf (0-5)
[2021-04-16 00:13] VITALS: BP 93/50; PULSE 85
[2021-04-16 00:25] VITALS: BP 99/57; PULSE 82; TEMP 36.3
[2021-04-16 00:50] VITALS: BP 99/57; PULSE 82; RESP 15; TEMP 36.3
== END 2021-04-16 00:50 | disposition home or self-care (01) ==
LOC: OPOB 21:22 → OBGYN 21:25
PROVIDERS: PCP Family Medicine; Visit Provider Family Medicine
DX: O26.899 Other specified pregnancy related conditions, unspecified trimester (principal); Z3A.00 Weeks of gestation of pregnancy not specified; R10.9 Unspecified abdominal pain
CPT/HCPCS: 81001; 87491; 87591; 99211

== ENCOUNTER 2021-04-30 21:31 | Outpatient (CLI) | payer MEDICAID, SELFPAY ==
[2021-04-30 21:28] VITALS: RESP 15; BMI 27.1
[2021-04-30 21:39] VITALS: BP 128/71; PULSE 108; TEMP 36.5
[2021-04-30 22:01] VITALS: BP 111/70; PULSE 100
[2021-04-30 22:10] VITALS: BP 111/70; PULSE 100; RESP 15; TEMP 36.4
[2021-04-30 22:12] LABS: Nitrazine Paper, PH Negative
--- NOTE | 2021-04-30 22:37 | PC.NURSE ---
Patient c/o vaginal bleeding starting 2 hours ago and a gush of clear fluid on the way here. Patient wearing scrub pants, no underwear or pad. White discharge noted on inside of pants. Patient states I have an infection but Dr Salmon knows about it.
== END 2021-04-30 22:10 | disposition home or self-care (01) ==
LOC: OPOB 21:32 → OBGYN 21:33
PROVIDERS: PCP Family Medicine; Visit Provider Family Medicine
DX: O46.90 Antepartum hemorrhage, unspecified, unspecified trimester (principal); Z3A.00 Weeks of gestation of pregnancy not specified; N89.8 Other specified noninflammatory disorders of vagina; Z91.81 History of falling
CPT/HCPCS: 83986; 99211

== ENCOUNTER 2021-05-11 12:25 | Outpatient (CLI) | payer MEDICAID, SELFPAY ==
[2021-05-11 12:25] VITALS: BMI 26.7
[2021-05-11 12:50] VITALS: BP 113/60; PULSE 99; RESP 18; TEMP 36.7; TEMP 36.9
[2021-05-11 13:01] VITALS: BP 113/54; PULSE 108
[2021-05-11 13:09] LABS: Actim Prom Negative
[2021-05-11 13:22] VITALS: BP 132/79; PULSE 100
[2021-05-11 13:23] LABS: Bilirubin Urine Neg (Negative); Blood Urine Neg (Negative); Glucose Urine UA Norm (Normal); Ketones Urine 1+ (Negative); Leukocyte Esterase Urine 2+ (Negative); Nitrate Urine Negative (Negative); Protein Urine Trace (Negative); Urine Appearance Clear (CLEAR); Urine Color Yellow (Yellow); Urobilinogen Urine 1 mg/dL (Negative); pH Urine 7 (5-7)
[2021-05-11 13:30] LABS: Add Urine Culture? No; Bacteria Urine 1+ /hpf; Mucus Urine 1+ /hpf; RBC Urine 0-4 /hpf (0-2); Squamous Epithelial Cell Urine 15-25 /hpf (0-5); WBC Urine 15-25 /hpf (0-5)
[2021-05-11 13:40] VITALS: BP 131/87; PULSE 104
--- NOTE | 2021-05-11 13:58 | PC.NURSE ---
1350 IV REMOVED WITH CATH INTACT, SHE CAME IN BY EMS WITH #20 IN LEFT AC SPACE.
[2021-05-11 14:03] VITALS: BP 131/87; PULSE 104; RESP 18; TEMP 36.7
== END 2021-05-11 14:00 | disposition home or self-care (01) ==
LOC: OPOB 12:48 → OBGYN 12:50
PROVIDERS: PCP Family Medicine; Visit Provider Family Medicine
DX: O26.899 Other specified pregnancy related conditions, unspecified trimester (principal); Z3A.00 Weeks of gestation of pregnancy not specified; R10.9 Unspecified abdominal pain
CPT/HCPCS: 59025; 81001; 84112; 99211

== ENCOUNTER 2021-06-15 08:30 | Outpatient (CLI) | payer MEDICAID, SELFPAY ==
[2021-06-15 08:55] VITALS: BP 116/61; PULSE 90
[2021-06-15 08:58] VITALS: BMI 28.3
[2021-06-15 08:59] VITALS: RESP 16
[2021-06-15 09:10] VITALS: BP 124/68; PULSE 113
[2021-06-15 10:10] LABS: Nitrazine Paper, PH Negative
== END 2021-06-15 09:30 | disposition home or self-care (01) ==
LOC: OPOB 08:35 → OBGYN 08:36
PROVIDERS: PCP Family Medicine; Visit Provider Family Medicine
DX: O26.899 Other specified pregnancy related conditions, unspecified trimester (principal); Z3A.00 Weeks of gestation of pregnancy not specified; N89.8 Other specified noninflammatory disorders of vagina; R10.9 Unspecified abdominal pain
CPT/HCPCS: 59025; 83986; 99211

== ENCOUNTER 2021-06-23 10:30 | Outpatient (CLI) | payer MEDICAID, SELFPAY ==
[2021-06-23 10:31] VITALS: BMI 30.8
[2021-06-23 10:59] VITALS: RESP 17; TEMP 36.7
[2021-06-23 11:08] VITALS: BP 121/69; PULSE 100
[2021-06-23 11:12] LABS: Nitrazine Paper, PH Negative
[2021-06-23 11:19] LABS: Actim Prom Negative
[2021-06-23 11:28] VITALS: BP 119/65; PULSE 100
[2021-06-23 11:48] VITALS: BP 110/71; PULSE 98
[2021-06-23 12:00] LABS: Bilirubin Urine Neg (Negative); Blood Urine Neg (Negative); Glucose Urine UA Norm (Normal); Ketones Urine 1+ (Negative); Leukocyte Esterase Urine 2+ (Negative); Nitrate Urine Negative (Negative); Protein Urine Neg (Negative); RBC Urine 0-4 /hpf (0-2); Specific Gravity, Urine 1.015 (1.005-1.030); Squamous Epithelial Cell Urine 25-40 /hpf (0-5); Urine Appearance Hazy (CLEAR); Urine Color Yellow (Yellow); Urobilinogen Urine 4 mg/dL (Negative); WBC Urine 40-55 /hpf (0-5); pH Urine 8 (5-7)
[2021-06-23 12:01] LABS: Add Urine Culture? No; Bacteria Urine 2+ /hpf
[2021-06-23 12:05] VITALS: BP 110/71; PULSE 98
[2021-06-23 12:08] LABS: Sulfosalicylic Acid Urine Negative (Negative)
== END 2021-06-23 12:05 | disposition home or self-care (01) ==
LOC: OPOB 10:30 → OBGYN 10:32
PROVIDERS: PCP Family Medicine; Visit Provider Family Medicine
DX: O26.899 Other specified pregnancy related conditions, unspecified trimester (principal); Z3A.00 Weeks of gestation of pregnancy not specified; N89.8 Other specified noninflammatory disorders of vagina
CPT/HCPCS: 59025; 81001; 83986; 84112; 99211

== ENCOUNTER 2021-07-14 00:13 | Outpatient (CLI) | payer MEDICAID, SELFPAY ==
[2021-07-14 00:16] VITALS: BMI 30.8
[2021-07-14 00:21] VITALS: TEMP 36.1
[2021-07-14 00:23] VITALS: BP 127/70; PULSE 64
[2021-07-14 01:11] LABS: Nitrazine Paper, PH Negative
== END 2021-07-14 00:55 | disposition home or self-care (01) ==
LOC: OPOB 00:14 → OBGYN 00:17
PROVIDERS: PCP Family Medicine; Visit Provider Family Medicine
DX: O26.899 Other specified pregnancy related conditions, unspecified trimester (principal); Z3A.00 Weeks of gestation of pregnancy not specified; N89.8 Other specified noninflammatory disorders of vagina
CPT/HCPCS: 59025; 83986

== ENCOUNTER 2021-07-16 17:35 | Outpatient (CLI) | payer MEDICAID, SELFPAY ==
[2021-07-16 17:42] VITALS: RESP 16
[2021-07-16 17:43] VITALS: BMI 33.2
[2021-07-16 17:50] VITALS: BP 137/82; PULSE 82
[2021-07-16 18:11] VITALS: BP 124/73; PULSE 69
[2021-07-16 18:29] VITALS: BP 127/64; PULSE 86
[2021-07-16 18:44] VITALS: BP 121/63; PULSE 85
== END 2021-07-16 18:55 | disposition home or self-care (01) ==
LOC: OPOB 17:37 → OBGYN 17:39
PROVIDERS: Absent Provider Family Medicine; PCP Family Medicine; Visit Provider Family Medicine
DX: O26.899 Other specified pregnancy related conditions, unspecified trimester (principal); Z3A.00 Weeks of gestation of pregnancy not specified
CPT/HCPCS: 59025; 99211

== ENCOUNTER 2021-07-18 15:10 | Outpatient (CLI) | payer MEDICAID, SELFPAY ==
[2021-07-18 15:27] VITALS: BP 139/86; PULSE 93
[2021-07-18 15:43] VITALS: BP 119/67; PULSE 83; RESP 16
[2021-07-18 15:53] VITALS: BMI 31.1
== END 2021-07-18 15:52 | disposition home or self-care (01) ==
LOC: OPOB 15:11 → OBGYN 15:13
PROVIDERS: PCP Family Medicine; Visit Provider Family Medicine
DX: O26.899 Other specified pregnancy related conditions, unspecified trimester (principal); Z3A.00 Weeks of gestation of pregnancy not specified; M54.9 Dorsalgia, unspecified; R10.2 Pelvic and perineal pain; R19.4 Change in bowel habit
CPT/HCPCS: 59025; 99211

== ENCOUNTER 2021-07-21 16:20 | Outpatient (CLI) | payer MEDICAID, SELFPAY ==
[2021-07-21 16:20] VITALS: BMI 30.4
[2021-07-21 16:37] VITALS: BP 135/68; PULSE 81; TEMP 36.1
[2021-07-21 17:23] LABS: Actim Prom Negative
[2021-07-21 17:36] VITALS: BP 139/81; PULSE 78
== END 2021-07-21 17:50 | disposition home or self-care (01) ==
LOC: OPOB 16:30 → OBGYN 16:31
PROVIDERS: PCP Family Medicine; Visit Provider Family Medicine
DX: O26.899 Other specified pregnancy related conditions, unspecified trimester (principal); Z3A.00 Weeks of gestation of pregnancy not specified; R10.9 Unspecified abdominal pain
CPT/HCPCS: 59025; 84112; 99211

== ENCOUNTER 2021-07-22 02:00 | Outpatient (CLI) | payer MEDICAID, SELFPAY ==
[2021-07-22 02:11] VITALS: RESP 16
[2021-07-22 02:12] VITALS: BMI 30.6
[2021-07-22 02:13] VITALS: BP 133/78; PULSE 75
[2021-07-22 02:28] VITALS: BP 133/82; PULSE 74
[2021-07-22 02:43] VITALS: BP 132/79; PULSE 82
[2021-07-22 02:44] VITALS: TEMP 36.4
== END 2021-07-22 02:49 | disposition home or self-care (01) ==
LOC: OPOB 02:03 → OBGYN 02:10
PROVIDERS: PCP Family Medicine; Visit Provider Family Medicine
DX: O26.899 Other specified pregnancy related conditions, unspecified trimester (principal); Z3A.00 Weeks of gestation of pregnancy not specified; R10.9 Unspecified abdominal pain
CPT/HCPCS: 59025; 99211

== ENCOUNTER 2021-07-25 04:45 | Inpatient (IN) | payer MEDICAID, SELFPAY ==
[2021-07-25] VITALS (82 sets, daily range): BP systolic 108–184; BP diastolic 62–105; PULSE 71–148; RESP 16–18; TEMP 36.1–37.9; O2SAT 92–100; BMI 29.7
[2021-07-25 04:32] LABS: Basophils # 0.1 10^3/uL (0.0-0.1); Basophils % 0.6 %; Eosinophils # 0.2 10^3/uL (0.0-0.8); Eosinophils % 1.1 %; Hematocrit 29.8 % (37.0-47.0); Hemoglobin 8.8 g/dL (11.5-15.3); Lymphocytes # 2.8 10^3/uL (1.5-6.5); Lymphocytes % 16.5 %; Mean Corpuscular HGB Conc 29.5 g/dL (30.0-36.0); Mean Corpuscular Hemoglobin 20.9 pg (28.0-34.0); Mean Corpuscular Volume 70.6 fl (81-99); Mean Platelet Volume 10.8 fL (7.4-10.4); Monocytes % 5.7 %; Neutrophils # 12.45 10^3/uL (1.8-8.0); Neutrophils % 73.6 %; Nucleated Red Blood Cells % 0.2 %; Platelet Count 343 10^3/cmm (130-400); Red Blood Count 4.22 10^6/uL (4.1-5.3); Red Cell Distribution Width 18.5 % (12.1-15.1); White Blood Count 16.9 10^3/uL (4.5-13.0)
[2021-07-25 04:40] LABS: Add Urine Microscopic? YES; Bilirubin Urine Neg (Negative); Blood Urine Neg (Negative); Glucose Urine UA Norm (Normal); Ketones Urine Negative (Negative); Leukocyte Esterase Urine Negative (Negative); Nitrate Urine Negative (Negative); Protein Urine Trace (Negative); Urine Appearance Clear (CLEAR); Urine Color Yellow (Yellow); Urobilinogen Urine Norm (Negative); pH Urine 6.5 (5-7)
[2021-07-25 04:41] LABS: Add Urine Culture? No; Bacteria Urine TRACE /hpf; RBC Urine 0-4 /hpf (0-2); Squamous Epithelial Cell Urine 0-4 /hpf (0-5); WBC Urine 0-4 /hpf (0-5)
[2021-07-25 04:49] LABS: Alanine Aminotransferase 10 U/L (0-33); Albumin Level 3.1 g/dL (3.5-5.2); Alkaline Phosphatase 225 IU/L (35-105); Anion Gap 16.8 (5-19); Aspartate Amino Transferase 18 U/L (0-32); Blood Urea Nitrogen 7 mg/dL (6-20); Calcium 7.9 mg/dL (8.5-10.5); Carbon Dioxide 19 mmol/L (22-29); Chloride 102 mmol/L (98-107); Globulin 3.2 g/dL (1.3-4.6); Glomerular Filtration Rate 205.6 mL/min (90-130); Glucose 91 mg/dL (65-115); Osmolality Calculated 276 mOsm/kg (285-295); Potassium 3.8 mmol/L (3.5-5.1); Sodium 134 mmol/L (136-145); Total Bilirubin 0.9 mg/dL (0.15-1.2); Total Protein 6.3 g/dL (6.6-8.7); Uric Acid 3.7 mg/dL (2.4-5.7)
[2021-07-25 04:52] LABS: Urine Creatinine 46 mg/dL (28-217)
[2021-07-25 04:54] LABS: UPRO/UCREAT Ratio 0.76 mg/mg CR; Urine Protein Random 35 mg/dL
[2021-07-25] MEDS: lactated ringers 1,000 ML 999 ML IV (05:03)
[2021-07-25] MEDS: fentaNYL 50 mcg/mL INJ 2mL IVP (05:28)
[2021-07-25] MEDS: oxytocin 30 UNIT/500 ML BAG IV (05:35)
[2021-07-25] MEDS: dextrose 5%-lactated ringers 1,000 ML 125 ML IV ×2 (06:10→12:28)
--- NOTE | 2021-07-25 06:38 | ANES.PREANE2 ---
Pre-Anesthetic Assessment Height/Weight: Height 1.6 m Pulse Resp BP 77 16 162/92 07/25/21 06:26 07/25/21 05:28 07/25/21 06:26 Preop Diagnosis: labor pain epidural Was Beta Hailee taken within 24 hours: N/A Was Clonidine taken within 24 hours: N/A Social No alcohol and No tobacco Exam alert, oriented x 3, clear to auscultation bilaterally and regular rate & rhythm Airway Submandibular: within normal limits Cervical ROM: within normal limits Mallampati: Class II Dentition: full Pulmonary Asthma CV/HEM Hypertension (preeclampsia) None reported Hepatic None reported GI None reported Metabolic None reported Musc/skel None reported Neuropsych Anxiety, Bipolar and Depression Anesthetic Plan ASA status: 2 Anesthesia: Regional (specify below) Risk of > 500 ml blood loss (7ml/kg in children): No Medications/Allergies Home Medications Medication Instructions Recorded Confirmed Last Taken Type vitamins no.119-iron 1 tab PO DAILY 04/15/21 07/21/21 07/21/21 19:57 History fumarate 29 mg-folic acid 1 mg tablet (Se--) valacyclovir 1 gram tablet 1,000 mg PO DAILY 04/15/21 07/21/21 07/21/21 19:57 History Allergies Allergy/AdvReac Type Severity Reaction Status Date / Time Penicillins Allergy ALGY-Swell Verified 07/22/21 17:46 Lip/Tongue/Throat Current Medications Generic Name Dose Route Start Last Admin Trade Name Freq PRN Reason Stop Dose Admin Fentanyl 25 - 100 mcg 07/25/21 04:24 07/25/21 05:28 Fentanyl 50 Mcg/Ml Inj 2ml IVP 25 mcg Q1H PRN Administration SEVERE PAIN Oxytocin 30 unit in 500 mls @ 1 mls/hr 07/25/21 04:30 07/25/21 05:35 Pitocin IV 1 milliunit/min .Q24H GRACE 1 mls/hr Administration Protocol 1 MILLIUNIT/MIN PFSH Anesthesia Medical History (Updated 06/03/21 @ 13:10 by Sandra Murillo) Psychiatric care Surgical History No pertinent past surgical history Family History Denies family history of Colon cancer Ovarian cancer Diabetes Heart disease Hypercholesteremia Breast cancer Hypertension Uterine cancer Stroke Social History Smoking and tobacco status: current every day smoker e-cigarettes E-Cigarette Details: vaporizer device and with nicotine Quit status (tobacco): not considering quitting Second hand smoke exposure: No Alcohol intake: never Adopted: Yes Lives independently: Yes Household members: other Housing: Manufactured/Mobile home Highest education level completed: 12th Grade, No Diploma service: No Current occupational status: unemployed Pets and animals: Yes Sexually active: Yes Current gender identity: Female Special sharon needs: No Female Reproductive History Date of last menstrual period: 10/18/20 Data Anesthesia : 07/25/21 04:16 07/25/21 04:16 Short CBC 07/25/21 Range/Units 04:16 WBC 16.9 H (4.5-13.0) 10^3/uL Hgb 8.8 L (11.5-15.3) g/dL Hct 29.8 L (37.0-47.0) % MCV 70.6 L (81-99) fl Plt Count 343 (130-400) 10^3/cmm Neut % (Auto) 73.6 % Neut # (Auto) 12.45 H (1.8-8.0) 10^3/uL BMP 07/25/21 04:16 Sodium 134 L Potassium 3.8 Chloride 102 Carbon Dioxide 19 L BUN 7 Creatinine 0.4 L Glucose 91 Calcium 7.9 L Liver Function 07/25/21 Range/Units 04:16 Total Bilirubin 0.9 (0.15-1.2) mg/dL AST 18 (0-32) U/L ALT 10 (0-33) U/L Alkaline Phosphatase 225 H (35-105) IU/L Albumin 3.1 L (3.5-5.2) g/dL Urine 07/25/21 Range/Units 04:16 Urine Color Yellow (Yellow) Urine Appearance Clear (CLEAR) Urine pH 6.5 (5-7) Ur Specific [place] 1.010 (1.005-1.030) Urine Protein Trace (Negative) Urine Glucose (UA) Norm (Normal) Urine Ketones Negative (Negative) Urine Nitrate Negative (Negative) Urine Bilirubin Neg (Negative) Ur Leukocyte Esterase Negative (Negative) Urine RBC 0-4 H (0-2) /hpf Urine WBC 0-4 H (0-5) /hpf Cardiac Studies: No Data to Display
--- NOTE | 2021-07-25 07:12 | P.ANES_ITS ---
Anesthesia Procedures Procedure/Date: 07/25/21 epidural Procedure Narrative: epidural complete, bolus given, epidural pump initiated with AUTOMOTIVE SALES ASSOCIATE education given, vitals taken during procedure using OBIX system and satisfactory throughout, patient admits to decrease pain, report of procedure to OB RN Epidural: Time Out Performed: Yes Consents Signed: Procedure Consent Consent: requested by attending/covering physician, from patient, risks and benefits reviewed and patient agrees to proceed Lumbar Level: L3-L4 Epidural position: sitting Epidural procedure: sterile prep of area, 1% lidocaine to numb the area (3 mL), 18 g needle, negative for paresthesia passed, neg for paresthesia, test dose given, 1.5% xylocaine 1:200k epi (5 mL), 0.2% Ropivacaine bolus ml (5 mL), placed PCEA, no systemic response, sterile dressing applied, L.U.D. no apparent complications and 0.2% Ropiavacaine @ mls/hr (13 mL/hr)
[2021-07-25] MEDS: miSOPROStol 200 mcg Tablet 800 MCG PR (14:10)
[2021-07-25] MEDS: lidocaine 1% INJ 20 mL INTRADERMA (14:20)
--- NOTE | 2021-07-25 17:20 | PM.OPHPUD ---
Labor & Delivery H&P Update Date of Procedure: July 25, 2021 Date H&P Performed: 07/25/21 Admission Diagnosis: Pre-eclampsia, new onset IUP at 40 weeks gestation Preop diagnosis: labor pain Planned procedure: Induction of labor with expectant management. Other information: This is a 20-year-old G5, P0 at 40 weeks 0 days gestation who presented to labor and delivery complaining of contractions. She was not found to be emilia regularly nor was she making any cervical change however she did have a couple elevated blood pressures. 1 was in the severe range. PIH labs were drawn and her urine protein creatinine ratio was elevated. The patient was admitted for induction of labor secondary to preeclampsia at term.
--- NOTE | 2021-07-25 17:23 | PM.DELIVERY ---
Delivery Note: Date of delivery: July 25, 2021 Pre-delivery diagnoses: Preeclampsia, new onset IUP at 40 weeks gestation Pre-Delivery Course: She had routine care at [facility]. The patient was treated for herpes, chlamydia, and trichomonas during the . She was continued on Valacyclovir and is currently without signs or symptoms of herpes. She had negative test of cure for STDs at 36 weeks gestation. She was GBS negative.. Blood type A+ antibody negative, hepatitis B surface antigen nonreactive, hepatitis C antibody nonreactive, HIV nonreactive, rubella immune, FTA-ABS nonreactive. Delivery: This is a 20-year-old G5, P0 at 40 weeks gestation who was admitted for induction secondary to new onset preeclampsia. She was asymptomatic but had elevated blood pressures. Her cervix was favorable and she was started on Pitocin. She was GBS negative. She received an epidural for pain management. She had spontaneous rupture of membranes approximately 7 hours prior to delivery. She had a normal spontaneous vaginal delivery of a viable male infant weight 3330 g, 7 pounds 2 ounces over an intact perineum. The was suctioned at delivery and placed on mother's chest. The cord was clamped and cut. The placenta was delivered grossly intact and normal to inspection. The patient had some persistent vaginal bleeding and was given 800 mcg of Cytotec rectally. She had a second-degree perineal laceration that was sutured using 3-0 chromic. Estimated blood loss 400 mL. Mother and were doing well after delivery. History History History 1 Term 0 Miscarriages/Ectopic 1 0 Living Children 0 Coding Level of Care Code Acute Wool Presser for Chg Fide
[2021-07-25] MEDS: ibuprofen 800 mg tablet PO (21:31)
[2021-07-25] MEDS: docusate sodium 100 mg Capsule PO (21:32)
[2021-07-26 03:26] VITALS: BP 126/73; PULSE 90; RESP 15; TEMP 36.9
[2021-07-26] MEDS: benzocaine-menthol 78 gm Canister 1 SPRAY TOPICAL (05:09)
[2021-07-26 06:56] LABS: Hematocrit 21.5 % (37.0-47.0); Mean Corpuscular HGB Conc 29.3 g/dL (30.0-36.0); Mean Corpuscular Hemoglobin 21.1 pg (28.0-34.0); Mean Corpuscular Volume 72.1 fl (81-99); Mean Platelet Volume 10.8 fL (7.4-10.4); Platelet Count 274 10^3/cmm (130-400); Red Blood Count 2.98 10^6/uL (4.1-5.3)
[2021-07-26 07:05] LABS: Hemoglobin 6.3 g/dL (11.5-15.3)
[2021-07-26] MEDS: prenatal vitamin Capsule 1 CAP PO (09:58)
[2021-07-26] MEDS: ibuprofen 800 mg tablet PO (09:58)
[2021-07-26] MEDS: docusate sodium 100 mg Capsule PO (09:58)
--- NOTE | 2021-07-26 14:15 | ANE.PACU2 ---
Inpatient post-anesthesia follow up: Airway intact: Yes Vital signs: Temperature 98.4 F Pulse Rate 90 Respiratory Rate 15 Blood Pressure 126/73 Pulse Oximetry 98 Oxygen Delivery Me thod Room Air Oxygen Flow Rate Fraction of Inspir ed Oxygen Hydration adequate: Yes Nausea and vomiting: No Pain level: 1 Mental status: Baseline
--- NOTE | 2021-07-26 17:16 | P.DS_ITS ---
Discharge Providers Date of Admission: 07/25/21 04:45 Date of Discharge: July 26, 2021 Attending Provider at Admission: Ksenia Salmon MD Attending Provider at Discharge: Ksenia Salmon MD Primary Care Provider: Ksenia Salmon MD Reason for Visit Reason for Visit: contractions Hospital Course Hospital Course This is a 20-year-old G5 now P1 who had a normal spontaneous vaginal delivery of a viable male . Mother was induced at 40 weeks gestation due to new onset preeclampsia. She did not require magnesium. She had an initial low blood count of 8.8. She had a minor hemorrhage immediately after delivery that resolved with 800 mcg of Cytotec. Her hemoglobin postdelivery was 6.3 and she was without any dizziness or shortness of breath. She was ambulating, tolerating a regular diet, had decreased vaginal bleeding and was comfortable with discharge home. Physical Exam 2 Narrative: Alert and oriented, sitting up in bed, heart regular rate and rhythm, lungs clear to auscultation bilaterally, abdomen soft nontender, fundus is firm and U- 2,, extremities have some edema but no calf tenderness. Urinary Catheter Management: Camara: Cath Placed During This Visit: yes Urinary Catheter Date of Insertion: 07/25/21 Urinary Catheter Time of Insertion: : Discharge Data Studies Completed and Pending Laboratory Results WBC 14.0 10^3/uL (4.5-13.0) H 07/26/21 06:30 RBC 2.98 10^6/uL (4.1-5.3) L 07/26/21 06:30 Hgb 6.3 g/dL (11.5-15.3) L* 07/26/21 06:30 Hct 21.5 % (37.0-47.0) L 07/26/21 06:30 MCV 72.1 fl (81-99) L 07/26/21 06:30 MCH 21.1 pg (28.0-34.0) L 07/26/21 06:30 MCHC 29.3 g/dL (30.0-36.0) L 07/26/21 06:30 RDW 19.0 % (12.1-15.1) H 07/26/21 06:30 Plt Count 274 10^3/cmm (130-400) 07/26/21 06:30 MPV 10.8 fL (7.4-10.4) H 07/26/21 06:30 Neut % (Auto) 73.6 % 07/25/21 04:16 Lymph % (Auto) 16.5 % 07/25/21 04:16 [place] % (Auto) 5.7 % 07/25/21 04:16 Eos % (Auto) 1.1 % 07/25/21 04:16 Baso % (Auto) 0.6 % 07/25/21 04:16 Neut # (Auto) 12.45 10^3/uL (1.8-8.0) H 07/25/21 04:16 Lymph # (Auto) 2.8 10^3/uL (1.5-6.5) 07/25/21 04:16 [place] # (Auto) 1.0 10^3/uL (0.2-0.9) H 07/25/21 04:16 Eos # (Auto) 0.2 10^3/uL (0.0-0.8) 07/25/21 04:16 Baso # (Auto) 0.1 10^3/uL (0.0-0.1) 07/25/21 04:16 Nucleated RBC % (auto) 0.2 % 07/25/21 04:16 Nucleated RBCs # 0.0 /100WBC 07/25/21 04:16 Sodium 134 mmol/L (136-145) L 07/25/21 04:16 Potassium 3.8 mmol/L (3.5-5.1) 07/25/21 04:16 Chloride 102 mmol/L (98-107) 07/25/21 04:16 Carbon Dioxide 19 mmol/L (22-29) L 07/25/21 04:16 Anion Gap 16.8 (5-19) 07/25/21 04:16 BUN 7 mg/dL (6-20) 07/25/21 04:16 Creatinine 0.4 mg/dL (0.5-0.9) L 07/25/21 04:16 GFR Calculation 205.6 mL/min (90-130) H 07/25/21 04:16 Glucose 91 mg/dL (65-115) 07/25/21 04:16 Calculated Osmolality 276 mOsm/kg (285-295) L 07/25/21 04:16 Uric Acid 3.7 mg/dL (2.4-5.7) 07/25/21 04:16 Calcium 7.9 mg/dL (8.5-10.5) L 07/25/21 04:16 Total Bilirubin 0.9 mg/dL (0.15-1.2) 07/25/21 04:16 AST 18 U/L (0-32) 07/25/21 04:16 ALT 10 U/L (0-33) 07/25/21 04:16 Alkaline Phosphatase 225 IU/L (35-105) H 07/25/21 04:16 Total Protein 6.3 g/dL (6.6-8.7) L 07/25/21 04:16 Albumin 3.1 g/dL (3.5-5.2) L 07/25/21 04:16 Globulin 3.2 g/dL (1.3-4.6) 07/25/21 04:16 Urine Color Yellow (Yellow) 07/25/21 04:16 Urine Appearance Clear (CLEAR) 07/25/21 04:16 Urine pH 6.5 (5-7) 07/25/21 04:16 Ur Specific [place] 1.010 (1.005-1.030) 07/25/21 04:16 Urine Protein Trace (Negative) 07/25/21 04:16 Urine Glucose (UA) Norm (Normal) 07/25/21 04:16 Urine Ketones Negative (Negative) 07/25/21 04:16 Urine Blood Neg (Negative) 07/25/21 04:16 Urine Nitrate Negative (Negative) 07/25/21 04:16 Urine Bilirubin Neg (Negative) 07/25/21 04:16 Urine Urobilinogen Norm mg/dL (Negative) 07/25/21 04:16 Ur Leukocyte Esterase Negative (Negative) 07/25/21 04:16 Urine RBC 0-4 /hpf (0-2) H 07/25/21 04:16 Urine WBC 0-4 /hpf (0-5) H 07/25/21 04:16 Ur Squamous Epith Cells 0-4 /hpf (0-5) H 07/25/21 04:16 Amorphous Sediment Not Reportable 07/25/21 04:16 Urine Bacteria Trace /hpf (NONE) 07/25/21 04:16 U Random Total Protein 35 mg/dL 07/25/21 04:16 Urine Creatinine 46 mg/dL (28-217) 07/25/21 04:16 Protein/Creatinin Ratio 0.76 mg/mg CR 07/25/21 04:16 Vitals Last Vital Signs Temp 98.4 F 07/26/21 03:26 Pulse 90 07/26/21 03:26 Resp 15 07/26/21 03:26 BP 126/73 07/26/21 03:26 Pulse Ox 98 07/25/21 17:47 Discharge Plan Discharge Condition: Stable Prescriptions: New ferrous sulfate 325 mg (65 mg iron) tablet,delayed release (DR/EC) 325 mg PO DAILY Qty: 30 2RF Continued valacyclovir 1 gram tablet 1,000 mg PO DAILY 0RF Se--19 29 mg iron- 1 mg tablet 1 tab PO DAILY 0RF Discharge Orders: Discharge Order (Routine); Ordered 07/26/21 Ordered By: Ksenia Salmon Discharge Diet: Usual diet Discharge Activity: Limit activity as instructed Patient Instructions: Depression (DC), Bleeding (DC), Preeclampsia and Eclampsia After Delivery (GEN), OB Discharge Report, OB Food/Drug Interaction Guide, OB Care at Home, Opioid Safety, OB Home Care, OB Vaginal Deliveries, Abnormal Bleeding Discharge Attestations Time Spent in Discharge Care*: less than 30 min Quality Metrics Clinical Quality Measures [ No reported AMI, CVA or VTE this stay] Coding Level of Care Code Acute Chg FW DC note
[2021-07-26 19:20] VITALS: BP 132/72; PULSE 111; RESP 18; O2SAT 98
== END 2021-07-26 19:30 | disposition home or self-care (01) | DRG 806 ==
LOC: OPOB 06:12 → OBGYN 06:12
PROVIDERS: Absent Provider Family Medicine; Admitting Provider Family Medicine; PCP Family Medicine; Visit Provider Family Medicine
DX: O11.4 Pre-existing hypertension with pre-eclampsia, complicating childbirth (principal); O98.52 Other viral diseases complicating childbirth; Z37.0 Single live birth; O10.92 Unspecified pre-existing hypertension complicating childbirth; O99.334 Smoking (tobacco) complicating childbirth; F17.290 Nicotine dependence, other tobacco product, uncomplicated; O99.344 Other mental disorders complicating childbirth; B00.9 Herpesviral infection, unspecified; O70.1 Second degree perineal laceration during delivery; Z3A.40 40 weeks gestation of pregnancy; O75.89 Other specified complications of labor and delivery; J45.909 Unspecified asthma, uncomplicated; A74.9 Chlamydial infection, unspecified; A59.9 Trichomoniasis, unspecified
CPT/HCPCS: 36415; 51702; 59025; 59409; 80053; 81001; 82570; 84156; 84550; 85025; 85027; 96374; 99211; J2795; J3010

== ENCOUNTER 2022-09-15 20:24 | Outpatient (CLI) | payer BC, MEDICAID, SELFPAY ==
[2022-09-15 20:37] VITALS: BMI 29.5
[2022-09-15 20:49] VITALS: BP 93/55; PULSE 88
== END 2022-09-15 21:20 | disposition home or self-care (01) ==
LOC: OPOB 20:26 → OBGYN 20:35
PROVIDERS: PCP Family Medicine; Visit Provider Family Medicine
DX: O47.9 False labor, unspecified (principal); Z3A.00 Weeks of gestation of pregnancy not specified
CPT/HCPCS: 59025; 99211

== ENCOUNTER 2022-09-24 12:07 | Outpatient (CLI) | payer BC, MEDICAID, SELFPAY ==
[2022-09-24 11:57] VITALS: BMI 29.4
[2022-09-24 12:19] VITALS: BP 115/58; PULSE 92; TEMP 35.9
[2022-09-24 12:43] VITALS: BP 115/58; PULSE 92; TEMP 35.9
== END 2022-09-24 12:50 | disposition home or self-care (01) ==
LOC: OPOB 12:08 → OBGYN 12:08
PROVIDERS: PCP Family Medicine; Visit Provider Family Medicine
DX: O26.899 Other specified pregnancy related conditions, unspecified trimester (principal); Z3A.00 Weeks of gestation of pregnancy not specified
CPT/HCPCS: 59025; 99211

== ENCOUNTER 2022-09-25 07:56 | Inpatient (IN) | payer MEDICAID, SELFPAY ==
[2022-09-25] VITALS (110 sets, daily range): BP systolic 88–135; BP diastolic 48–95; PULSE 62–142; RESP 16–18; TEMP 36.6–37.2; O2SAT 96–100; BMI 29.7
[2022-09-25 09:16] LABS: Basophils % 0.4 %; Eosinophils # 0.1 10^3/uL (0.0-0.8); Eosinophils % 0.4 %; Hematocrit 34.1 % (37.0-47.0); Hemoglobin 10.9 g/dL (11.5-15.3); Lymphocytes # 1.7 10^3/uL (0.8-4.8); Lymphocytes % 15.6 %; Mean Corpuscular Hemoglobin 25.4 pg (28.0-34.0); Mean Corpuscular Volume 79.5 fl (81-99); Mean Platelet Volume 9.6 fL (7.4-10.4); Monocytes # 0.5 10^3/uL (0.2-0.9); Monocytes % 4.7 %; Neutrophils # 8.78 10^3/uL (1.8-7.7); Neutrophils % 78.5 %; Nucleated Red Blood Cells % 0 %; Platelet Count 283 10^3/cmm (130-400); Red Blood Count 4.29 10^6/uL (4.1-5.3); White Blood Count 11.2 10^3/uL (4.0-10.0)
[2022-09-25] MEDS: dextrose 5%-lactated ringers 1,000 ML 125 ML IV (09:37)
[2022-09-25 09:43] LABS: Add RBC Morph Yes; Slide Review Slide Review Perform
[2022-09-25 09:45] LABS: Dimorphic RBC 3+; Microcytosis Trace; Poikilocytosis 1+
[2022-09-25 09:46] LABS: Macrocytosis 1+; RBC Morph Comp Yes
[2022-09-25] MEDS: lactated ringers 1,000 ML 999 ML IV ×2 (11:22→12:30)
--- NOTE | 2022-09-25 11:48 | P.HP_ITS ---
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 Patient has been having some intermittent contractions and was seen in labor and delivery last night. Patient was 3 cm at that time. At presentation today she was 4 cm with small amount of bloody show. Patient's care has been unremarkable and has had adequate visits. GBS was negative. Present Details : 5 Para: 1 care: good care Review of Systems General: Reports: 10 or more systems reviewed and unremarkable except in HPI and below Narrative: Patient reports good movement, denies loss of fluid, or vaginal bleeding Medications/Allergies Home Medications Medication Instructions Recorded Confirmed Last Taken Type vitamins no.119-iron 1 tab PO DAILY 04/15/21 07/25/21 07/24/21 08:00 History fumarate 29 mg-folic acid 1 mg tablet (Se-Tr-19) valacyclovir 1 gram tablet 1,000 mg PO DAILY 04/15/21 07/25/21 07/24/21 08:00 History ferrous sulfate 325 mg (65 mg 325 mg PO DAILY #30 tabs 07/26/21 Unknown Rx iron) tablet,delayed release Allergies Allergy/AdvReac Type Severity Reaction Status Date / Time Penicillins Allergy AUDI-Katerinell Verified 07/25/21 09:06 Lip/Tongue/Throat PFSH [employer] 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[employer]OR PFSH: Surgical History No pertinent past surgical history Family History Denies family history of Colon cancer Ovarian cancer Diabetes Heart disease Hypercholesteremia Breast cancer Hypertension Uterine cancer Stroke Social History Smoking and tobacco status: current every day smoker e-cigarettes E-Cigarette Details: vaporizer device and with nicotine Quit status (tobacco): not considering quitting Second hand smoke exposure: No Alcohol intake: never Substance/Drug Use: never Adopted: Yes Lives independently: Yes Household members: other Housing: Manufactured/Mobile home Highest education level completed: 12th Grade, No Diploma service: No Current occupational status: unemployed Pets and animals: Yes Sexually active: Yes Do you think of yourself as: Straight/Heterosexual Current gender identity: Female Special sharon needs: No Other Female Reproductive History: Hx Age of Menarche: 10 Duration of menses: 3-5 days Cycle Length: 28-30 days Menstrual flow: normal/abnormal: normal History History History 5 Term 0 0 Miscarriages/Ectopic 3 Living Children 1 Vitals/I&O/Wt Last Vital Signs Temp 97.8 F 09/25/22 08:46 Pulse 72 09/25/22 11:45 Resp 17 09/25/22 08:46 BP 108/76 09/25/22 11:45 O2 Del Method Room Air 09/25/22 08:49 Weight last 48 hrs Weight 75.977 kg Physical Exam Const: COMMON NORMALS: no acute distress, healthy appearing and alert Resp: COMMON NORMALS: normal respiratory effort and No retractions Cardio: COMMON NORMALS: no JVD, regular rate and regular rhythm GI: OTHER: Gravid : COMMON NORMALS: Yes normal external appearance Extremity: COMMON NORMALS: normal to inspection and no clubbing, cyanosis or edema Neuro: COMMON NORMALS: moves all extremities, no focal motor deficits and no sensory deficits noted Psych: COMMON NORMALS: mental status grossly normal, cooperative and normal affect Skin: COMMON NORMALS: no rashes or lesions noted Data 09/25/22 08:50 A&P Assessment and plan (1) Term , repeat: Proceed with induction of labor by starting with Pitocin. Plan on artificial rupture membranes when contractions are adequate. (2) 39 weeks gestation of : Attestations Medical Necessity Statement*: Anticipate at least 1 midnight stay. Patient admitted for induction of labor. Coding Level of Care Code Acute Code for Chg Fwd Diagnoses Term , repeat Z34.90 39 weeks gestation of Z3A.39
[2022-09-25] MEDS: fentaNYL 50 mcg/mL INJ 2mL IVP (11:52)
--- NOTE | 2022-09-25 12:54 | ANES.PREANE2 ---
Pre-Anesthetic Assessment Height/Weight: Height 1.6 m Weight 75.977 kg Temp Pulse Resp BP Pulse Ox O2 Del Method 97.8 F 81 16 117/59 100 Room Air 09/25/22 08:46 09/25/22 12:51 09/25/22 11:52 09/25/22 12:51 09/25/22 12:50 09/25/22 08:49 epidural Familial anesthetic complications: none Was Beta Hailee taken within 24 hours: N/A Was Clonidine taken within 24 hours: N/A Social No alcohol and No tobacco Exam alert, oriented x 3, clear to auscultation bilaterally and regular rate & rhythm Airway Mallampati: Class I Dentition: full CV/HEM Anemia Metabolic hx primary and secondary genital herpes infection on acyclovir, no current outbreak Anesthetic Plan ASA status: 2 Anesthesia: Regional (specify below) Risk of > 500 ml blood loss (7ml/kg in children): Yes, adequate IV access and fluids planned Medications/Allergies Home Medications Medication Instructions Recorded Confirmed Last Taken Type vitamins no.119-iron 1 tab PO DAILY 04/15/21 07/25/21 07/24/21 08:00 History fumarate 29 mg-folic acid 1 mg tablet (Se--19) valacyclovir 1 gram tablet 1,000 mg PO DAILY 04/15/21 07/25/21 07/24/21 08:00 History ferrous sulfate 325 mg (65 mg 325 mg PO DAILY #30 tabs 07/26/21 Unknown Rx iron) tablet,delayed release Allergies Allergy/AdvReac Type Severity Reaction Status Date / Time No Known Allergies Allergy Verified 09/25/22 12:17 Current Medications Generic Name Dose Route Start Last Admin Trade Name El PRN Reason Stop Dose Admin Fentanyl 25 - 100 mcg 09/25/22 11:33 09/25/22 11:52 Fentanyl 50 Mcg/Ml Inj 2ml IVP 25 mcg Q1H PRN Administration SEVERE PAIN Dextrose/Lactated Ringer's 1,000 mls @ 125 mls/hr 09/25/22 08:45 09/25/22 09:37 Dextrose 5%-Lactated Ringers IV 125 mls/hr .Q8H GRACE Administration Oxytocin 30 unit/ Sodium 503 mls @ 1 mls/hr 09/25/22 09:15 09/25/22 09:40 Chloride IV 1 mls/hr .Q24H GRACE 1 mls/hr Administration Protocol Lactated Ringer's 1,000 mls @ 999 mls/hr 09/25/22 11:54 09/25/22 12:30 Lactated Ringers IV 999 mls/hr .Q1H1M PRN Administration See label comments Ropivacaine 100 mg in 50 mls @ 10 mls/hr 09/25/22 11:54 09/25/22 12:44 Naropin Syringe EPIDURAL 10 mls/hr .Q5H PRN Administration LABOR PAIN PFSH Anesthesia Surgical History No pertinent past surgical history Family History Denies family history of Colon cancer Ovarian cancer Diabetes Heart disease Hypercholesteremia Breast cancer Hypertension Uterine cancer Stroke Social History Smoking and tobacco status: current every day smoker e-cigarettes E-Cigarette Details: vaporizer device and with nicotine Quit status (tobacco): not considering quitting Second hand smoke exposure: No Alcohol intake: never Substance/Drug Use: never Adopted: Yes Lives independently: Yes Household members: other Housing: Manufactured/Mobile home Highest education level completed: 12th Grade, No Diploma service: No Current occupational status: unemployed Pets and animals: Yes Sexually active: Yes Do you think of yourself as: Straight/Heterosexual Current gender identity: Female Special sharon needs: No Female Reproductive History : 5 Data Anesthesia 09/25/22 08:50 Short CBC 09/25/22 Range/Units 08:50 WBC 11.2 H (4.0-10.0) 10^3/uL Hgb 10.9 L (11.5-15.3) g/dL Hct 34.1 L (37.0-47.0) % MCV 79.5 L (81-99) fl Plt Count 283 (130-400) 10^3/cmm Neut % (Auto) 78.5 % Neut # (Auto) 8.78 H (1.8-7.7) 10^3/uL Cardiac Studies: No Data to Display
--- NOTE | 2022-09-25 12:55 | ANES.PROC ---
Anesthesia Procedures Procedure/Date: 09/25/22 Epidural: Time Out Performed: Yes Consents Signed: Procedure Consent Consent: requested by attending/covering physician, from patient, from other, risks and benefits reviewed and patient agrees to proceed Lumbar Level: L3-L4 Epidural position: sitting Epidural procedure: sterile prep of area, 1% lidocaine to numb the area, 18 g needle, negative for paresthesia passed, neg for paresthesia, test dose given, 1.5% xylocaine 1:200k epi (5 cc (divided dose)), placed PCEA, no systemic response, sterile dressing applied, L.U.D. no apparent complications and 0.2% Ropiavacaine @ mls/hr (10) Additional Comments: ELIECER at 4 cm, threaded to 10 cm. Patient jumped considerably during last portion of threading catheter. Aspirated on catheter at 10 cm for 2 to 3 min in case dural puncture occured and only aspirated 0.5 cc. Negative test dose, BP stable. Pain decreased from 5/10 to 3/10
--- NOTE | 2022-09-25 18:03 | PM.DELIVERY ---
Delivery Note: Date of delivery: September 25, 2022 Pre-delivery diagnoses: TIUP Post-delivery diagnoses: Same, viable female Procedure: Continuous vaginal delivery Delivering Physician: Arnold Chi MD Estimated blood loss (mL): 300 Pre-Delivery Course: This is a 22-year-old G5, P2 female presenting for induction of labor at 39w2d. Patient was started with Pitocin eventually AROM was performed. Patient continued to progress to completion Delivery: Patient was completely dilated patient was placed into normal lithotomy position. Patient started pushing with each contraction. Few series of pushes the patient delivered the infant's head and right shoulder dystocia was noted. The anterior shoulder was delivered with significant downward traction the rest of the infant's body. Cord was cut and cut after approximately 2-minute delay. Placenta was then delivered soon after. Review of the perineum did show a first-degree perineal tear as well as bilateral labial tears. This tear was repaired with 2-0 Vicryl. Bilateral labial tears were not actively bleeding so they were left to heal without suture. The procedure the patient's bleeding was controlled. Post-Delivery Status: stable History History History 5 Term 0 0 Miscarriages/Ectopic 3 Living Children 2 A&P Assessment and plan (1) Vaginal delivery: Coding Level of Care Code Acute Code for Chg Fwd Diagnoses Vaginal delivery O80
[2022-09-25] MEDS: ibuprofen 800 mg tablet PO (20:25)
[2022-09-25] MEDS: benzocaine-menthol 78 gm Canister 1 SPRAY TOPICAL (20:27)
[2022-09-25] MEDS: HYDROcodone-acetaminophen 5-325 mg Tablet PO (21:29)
[2022-09-25] MEDS: miSOPROStol 200 mcg Tablet 800 MCG PR (22:58)
[2022-09-26 01:45] VITALS: BP 120/60; PULSE 75
[2022-09-26 04:00] VITALS: BP 103/68; PULSE 67; RESP 16; TEMP 36.9; O2SAT 96
[2022-09-26 06:31] LABS: Hematocrit 31.6 % (37.0-47.0); Mean Corpuscular HGB Conc 31.6 g/dL (30.0-36.0); Mean Corpuscular Hemoglobin 25.3 pg (28.0-34.0); Mean Platelet Volume 10.2 fL (7.4-10.4); Platelet Count 202 10^3/cmm (130-400); Red Blood Count 3.95 10^6/uL (4.1-5.3); Red Cell Distribution Width 26.5 % (12.1-15.1); White Blood Count 16.1 10^3/uL (4.0-10.0)
--- NOTE | 2022-09-26 07:26 | ANE.PACU2 ---
Inpatient post-anesthesia follow up: Airway intact: Yes Vital signs: Temperature 98.5 F Pulse Rate 62 Respiratory Rate 16 Blood Pressure 104/63 Pulse Oximetry 97 Oxygen Delivery Me thod Room Air Oxygen Flow Rate Fraction of Inspir ed Oxygen Hydration adequate: Yes Nausea and vomiting: Yes Pain level: 1 Mental status: Baseline
[2022-09-26 08:00] VITALS: BP 117/61; PULSE 61; RESP 15; TEMP 36.3; O2SAT 98
[2022-09-26] MEDS: docusate sodium 100 mg Capsule PO (08:53)
[2022-09-26] MEDS: prenatal vitamin Capsule 1 CAP PO (08:53)
[2022-09-26] MEDS: ibuprofen 800 mg tablet PO ×2 (08:53→15:33)
--- NOTE | 2022-09-26 12:46 | P.PN_ITS ---
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 She had some increased bleeding overnight and received a dose of cytotec. This helped her bleeding. Bleeding is now more appropriate. Patient has been ambulating and urinating w/o issue. Pain is controlled. Labor: Station: +2 Amniotic Membrane Status: Ruptured Monitor Mode: Palpation Contraction Pattern: Irregular Vitals/I&O/Wt Last Vital Signs Temp 98.4 F 09/26/22 04:00 Pulse 67 09/26/22 04:00 Resp 16 09/26/22 04:00 BP 103/68 09/26/22 04:00 Pulse Ox 96 09/26/22 04:00 O2 Del Method Room Air 09/26/22 04:00 09/25/22 09/26/22 09/26/22 22:59 06:59 14:59 Intake Total 54.383 / 1073.483 Output Total 1125 / 1125 Balance -1070.617 / -51.517 Weight last 48 hrs Weight 75.977 kg Physical Exam Const: COMMON NORMALS: no acute distress, healthy appearing and alert Neck/C-Spine: COMMON NORMALS: no JVD Resp: COMMON NORMALS: normal respiratory effort and No retractions Cardio: COMMON NORMALS: no JVD, regular rate and regular rhythm RATE: reg ular rate RHYTHM: regular rhythm GI: OTHER: Uterus firm below umbilicus Extremity: COMMON NORMALS: normal to inspection and no clubbing, cyanosis or edema Neuro: COMMON NORMALS: moves all extremities, no focal motor deficits and no sensory deficits noted SENSORIUM/ORIENTATION: Yes alert Psych: COMMON NORMALS: mental status grossly normal, cooperative and normal affect Skin: COMMON NORMALS: no rashes or lesions noted GENERAL SKIN EXAM: no rashes or lesions noted Urinary Catheter Management: Camara: Cath Placed During This Visit: yes Urinary Catheter Date of Insertion: 09/25/22 Urinary Catheter Time of Insertion: 13:41 Data 09/26/22 06:20 A&P Assessment and plan (1) Vaginal delivery: No issues. continue post care. Attestations Medical Necessity Statement*: Anticipate discharge tomorrow. Coding Level of Care Code Acute Code for Chg Fwd Diagnoses Vaginal delivery O80
[2022-09-26 15:36] VITALS: BP 107/69; PULSE 66; RESP 15; O2SAT 97
--- NOTE | 2022-09-26 16:48 | PM.DCS ---
Discharge Providers Date of Admission: 09/25/22 07:56 Date of Discharge: September 26, 2022 Attending Provider at Admission: Minesh Chi MD Attending Provider at Discharge: Minesh Chi MD Primary Care Provider: Ksenia Salmon MD Diagnoses at Discharge Discharge Diagnosis (1) Vaginal delivery: Status: Acute Reason for Visit Reason for Visit: Induction Brief History: This is a 26-year-old that presented for induction of labor at 39 weeks 1 day. Hospital Course Hospital Course The patient was admitted for induction of labor and was started on Pitocin. The patient started having good contraction pattern and was feeling her contractions. AROM was performed and the patient received an epidural soon after. Patient continued to progress slowly to completion. Once complete the patient delivered a viable female without difficulty. Patient's care was unremarkable. Physical Exam Urinary Catheter Management: Camara: Cath Placed During This Visit: yes Urinary Catheter Date of Insertion: 09/25/22 Urinary Catheter Time of Insertion: 13:41 Discharge Data Studies Completed and Pending Laboratory Results WBC 16.1 10^3/uL (4.0-10.0) H 09/26/22 06:20 RBC 3.95 10^6/uL (4.1-5.3) L 09/26/22 06:20 Hgb 10.0 g/dL (11.5-15.3) L 09/26/22 06:20 Hct 31.6 % (37.0-47.0) L 09/26/22 06:20 MCV 80.0 fl (81-99) L 09/26/22 06:20 MCH 25.3 pg (28.0-34.0) L 09/26/22 06:20 MCHC 31.6 g/dL (30.0-36.0) 09/26/22 06:20 RDW 26.5 % (12.1-15.1) H 09/26/22 06:20 Plt Count 202 10^3/cmm (130-400) 09/26/22 06:20 MPV 10.2 fL (7.4-10.4) 09/26/22 06:20 Neut % (Auto) 78.5 % 09/25/22 08:50 Lymph % (Auto) 15.6 % 09/25/22 08:50 [place] % (Auto) 4.7 % 09/25/22 08:50 Eos % (Auto) 0.4 % 09/25/22 08:50 Baso % (Auto) 0.4 % 09/25/22 08:50 Neut # (Auto) 8.78 10^3/uL (1.8-7.7) H 09/25/22 08:50 Lymph # (Auto) 1.7 10^3/uL (0.8-4.8) 09/25/22 08:50 [place] # (Auto) 0.5 10^3/uL (0.2-0.9) 09/25/22 08:50 Eos # (Auto) 0.1 10^3/uL (0.0-0.8) 09/25/22 08:50 Baso # (Auto) 0.0 10^3/uL (0.0-0.1) 09/25/22 08:50 Nucleated RBC % (auto) 0 % 09/25/22 08:50 Nucleated RBCs # 0.0 /100WBC 09/25/22 08:50 Dimorphic RBCs 3+ H 09/25/22 08:50 Poikilocytosis 1+ H 09/25/22 08:50 Microcytosis Trace 09/25/22 08:50 Macrocytosis 1+ H 09/25/22 08:50 Vitals Last Vital Signs Temp 97.4 F L 09/26/22 08:00 Pulse 66 09/26/22 15:36 Resp 15 09/26/22 15:36 BP 107/69 09/26/22 15:36 Pulse Ox 97 09/26/22 15:36 O2 Del Method Room Air 09/26/22 15:36 Discharge Plan Discharge Patient Disposition: Home Condition: Stable Prescriptions: Continued valacyclovir 1 gram tablet 1,000 mg PO DAILY Se--19 29 mg iron- 1 mg tablet 1 tab PO DAILY ferrous sulfate 325 mg (65 mg iron) tablet,delayed release (DR/EC) 325 mg PO DAILY Qty: 30 2RF Discharge Orders: Discharge Order (Routine); Ordered 09/26/22 Ordered By: Minesh Chi Referrals: Minesh Chi MD [Physician] - 11/01/22 9:45 am (Your appointment with Dr. Chi is scheduled for SundayNovember 01 @9:45am. ) Discharge Diet: As Directed Discharge Activity: Limit activity as instructed Patient Instructions: Depression (DC), Preeclampsia and Eclampsia After Delivery (GEN), Hemorrhage (DC), OB Discharge Report, OB Food/Drug Interaction Guide, OB Care at Home, Opioid Safety, Abnormal Bleeding Discharge Attestations Time Spent in Discharge Care*: less than 30 min Quality Metrics Clinical Quality Measures [ No reported AMI, CVA or VTE this stay] Coding Level of Care Code Acute Code for Chg Fwd Diagnoses Vaginal delivery O80
[2022-09-26 19:40] VITALS: BP 104/63; PULSE 62; RESP 16; TEMP 36.9; O2SAT 97
== END 2022-09-26 19:47 | disposition home or self-care (01) | DRG 807 ==
PROVIDERS: Admitting Provider Family Medicine; PCP Family Medicine; Visit Provider Family Medicine
DX: O99.02 Anemia complicating childbirth (principal); Z37.0 Single live birth; D64.9 Anemia, unspecified; O99.334 Smoking (tobacco) complicating childbirth; F17.290 Nicotine dependence, other tobacco product, uncomplicated; O66.0 Obstructed labor due to shoulder dystocia; O70.0 First degree perineal laceration during delivery; Z3A.39 39 weeks gestation of pregnancy
CPT/HCPCS: 36415; 51702; 59025; 59409; 85025; 85027; 96374; J2795; J3010; J7040; J7120; J7121

== ENCOUNTER 2022-09-28 18:49 | Emergency (ER) | payer BC, MEDICAID, SELFPAY ==
[2022-09-28 19:04] VITALS: BP 126/73; PULSE 105; RESP 18; TEMP 36.8; O2SAT 96; BMI 27.3
[2022-09-28 19:24] VITALS: BP 129/75; PULSE 109; RESP 16; O2SAT 97
[2022-09-28] MEDS: sodium chloride 0.9% 1,000 ML 999 ML IV (19:39)
[2022-09-28 19:41] LABS: Basophils % 0.3 %; Eosinophils # 0.3 10^3/uL (0.0-0.8); Eosinophils % 2.3 %; Hematocrit 33.4 % (37.0-47.0); Hemoglobin 10.7 g/dL (11.5-15.3); Lymphocytes # 2.1 10^3/uL (0.8-4.8); Lymphocytes % 18.6 %; Mean Corpuscular Hemoglobin 25.2 pg (28.0-34.0); Mean Corpuscular Volume 78.6 fl (81-99); Mean Platelet Volume 9.6 fL (7.4-10.4); Monocytes # 0.7 10^3/uL (0.2-0.9); Monocytes % 5.8 %; Neutrophils # 8.21 10^3/uL (1.8-7.7); Neutrophils % 72.5 %; Nucleated Red Blood Cells % 0 %; Platelet Count 357 10^3/cmm (130-400); Red Blood Count 4.25 10^6/uL (4.1-5.3); Red Cell Distribution Width 26.2 % (12.1-15.1); White Blood Count 11.3 10^3/uL (4.0-10.0)
--- NOTE | 2022-09-28 19:45 | ED_ITS ---
HPI - Female Genitourinary General: Chief complaint: Vaginal Bleeding Stated complaint: Passing Blood Clots\Dizzy\Baby 2 days old Time Seen by Provider: 09/28/22 19:25 History of Present Illness: Patient presents ER with complaints of passing 4-5 golf ball size clots and feeling lightheaded and dizzy. Patient had a baby 3 days ago vaginally and had to have medicine given for her heavy bleeding. Patient's heart rate approximate 109 bpm patient is resting comfortably in bed in no acute distress at this moment. Review of Systems General: Reports: 10 or more systems reviewed and unremarkable except in HPI and below PFSH ED PFSH: Surgical History No pertinent past surgical history Family History Denies family history of Colon cancer Ovarian cancer Diabetes Heart disease Hypercholesteremia Breast cancer Hypertension Uterine cancer Stroke Social History Smoking and tobacco status: current every day smoker e-cigarettes E-Cigarette Details: vaporizer device and with nicotine Quit status (tobacco): not considering quitting Second hand smoke exposure: No Alcohol intake: never Substance/Drug Use: never Adopted: Yes Lives independently: Yes Household members: other Housing: Manufactured/Mobile home Highest education level completed: 12th Grade, No Diploma service: No Current occupational status: unemployed Pets and animals: Yes Sexually active: Yes Do you think of yourself as: Straight/Heterosexual Current gender identity: Female Special sharon needs: No Physical Exam Const: COMMON NORMALS: no acute distress, average body habitus, patient oriented x3, no limitations, healthy appearing, alert and well nourished HENMT: COMMON NORMALS: normocephalic, atraumatic, hearing grossly normal bilaterally, external ears normal, Normal external nose present and moist oral mucous membranes HEAD & SCALP: normocephalic and atraumatic NOSE: Normal external nose present EXTERNAL EAR: Yes external ears normal Eye: COMMON NORMALS: Equal, round and reactive pupils present, EOMs intact bilaterally, conjunctivae normal and no scleral icterus CONJUNCTIVA: Yes conjunctivae normal PUPIL: Yes Equal, round and reactive pupils present Neck/C-Spine: COMMON NORMALS: full ROM, no lymphadenopathy, supple, no meningeal signs, no JVD and Thyroid normal THYROID: Thyroid normal Chest: COMMONS NORMALS: normal inspection of the chest and normal palpation of entire chest wall Resp: COMMON NORMALS: normal respiratory effort, No retractions, No use of accessory muscles and clear to auscultation bilaterally AUSCULTATION: clear to auscultation bilaterally Cardio: COMMON NORMALS: no JVD, regular rate, regular rhythm, S1 normal heart sound present, S2 normal heart sound present, No gallops present (Cardio), No clicks present (Cardio) and No murmurs present (Cardio) RATE: regular rate RHYTHM: regular rhythm HEART SOUNDS: S1 normal heart sound present and S2 normal heart sound present GI: COMMON NORMALS: Normal to inspection, nondistended, normoactive bowel sounds present, Soft to palpation, non-tender, No hepatosplenomegaly present and no masses PALPATION: Yes Soft to palpation and Yes No hepatosplenomegaly present : COMMON NORMALS: Yes no CVA tenderness BLADDER/KIDNEY EXAM: Yes no CVA tenderness Back/Pelvis: COMMON NORMALS: no CVA tenderness Neuro: COMMON NORMALS: patient oriented x3 SENSORIUM/ORIENTATION: Yes alert MENINGEAL SIGNS: Yes no meningeal signs Course Vital Signs: Vital signs: Vital Signs Temperature 98.3 F 09/28/22 19:04 Pulse Rate 109 H 09/28/22 19:24 Respiratory Rate 16 09/28/22 19:24 Blood Pressure 129/75 09/28/22 19:24 Pulse Oximetry 97 09/28/22 19:24 MDM - Female Medical Decision Making Patient presents to the ER today after passing 4-5 golf ball size clots and feeling lightheaded and dizzy. Patient just recently had a vaginal approximately 3 days ago which resulted in perineal tear with stitches. Lab work was obtained which showed patient's hemoglobin actually improved since then up to 10.7. Patient was given 1 L normal saline IV bolus and patient felt much better and her heart rate improved. Patient will be discharged and is to follow-up with her family practice doctor and/or OB as needed. Differential Diagnosis Unlikely abdominal pain, acute appendicitis, calculus of kidney, constipation, diverticulitis, endometriosis, gastroenteritis, pancreatitis or small bowel obstruction Medical Records I reviewed the patient's medical records. Lab Data I reviewed the patient's lab results. 09/28/22 19:26 09/28/22 19:26 Laboratory Results WBC 11.3 10^3/uL (4.0-10.0) H 09/28/22 19: RBC 4.25 10^6/uL (4.1-5.3) 09/28/22 19:26 Hgb 10.7 g/dL (11.5-15.3) L 09/28/22 19: Hct 33.4 % (37.0-47.0) L 09/28/22 19: MCV 78.6 fl (81-99) L 09/28/22 19: MCH 25.2 pg (28.0-34.0) L 09/28/22 19: MCHC 32.0 g/dL (30.0-36.0) 09/28/22 19: RDW 26.2 % (12.1-15.1) H 09/28/22 19: Plt Count 357 10^3/cmm (130-400) 09/28/22 19: MPV 9.6 fL (7.4-10.4) 09/28/22 19: Neut % (Auto) 72.5 % 09/28/22 19: Lymph % (Auto) 18.6 % 09/28/22 19: [place] % (Auto) 5.8 % 09/28/22 19: Eos % (Auto) 2.3 % 09/28/22 19:26 Baso % (Auto) 0.3 % 09/28/22 19: Neut # (Auto) 8.21 10^3/uL (1.8-7.7) H 09/28/22 19: Lymph # (Auto) 2.1 10^3/uL (0.8-4.8) 09/28/22 19: [place] # (Auto) 0.7 10^3/uL (0.2-0.9) 09/28/22 19: Eos # (Auto) 0.3 10^3/uL (0.0-0.8) 09/28/22 19:26 Baso # (Auto) 0.0 10^3/uL (0.0-0.1) 09/28/22 19: Nucleated RBC % (auto) 0 % 09/28/22 19:26 Nucleated RBCs # 0.0 /100WBC 09/28/22 19:26 Sodium 137 mmol/L (136-145) 09/28/22 19:26 Potassium 3.7 mmol/L (3.5-5.1) 09/28/22 19:26 Chloride 102 mmol/L (98-107) 09/28/22 19:26 Carbon Dioxide 24 mmol/L (22-29) 09/28/22 19:26 Anion Gap 14.7 (5-19) 09/28/22 19:26 BUN 5 mg/dL (6-20) L 09/28/22 19:26 Creatinine 0.4 mg/dL (0.5-0.9) L 09/28/22 19:26 GFR Calculation 201.5 mL/min (90-130) H 09/28/22 19:26 Glucose 98 mg/dL (65-115) 09/28/22 19:26 Calculated Osmolality 281 mOsm/kg (285-295) L 09/28/22 19:26 Calcium 9.2 mg/dL (8.5-10.5) 09/28/22 19:26 Total Bilirubin 0.5 mg/dL (0.15-1.2) 09/28/22 19:26 AST 34 U/L (0-32) H 09/28/22 19:26 ALT 31 U/L (0-33) 09/28/22 19:26 Alkaline Phosphatase 101 U/L (35-105) 09/28/22 19:26 Total Protein 6.2 g/dL (6.6-8.7) L 09/28/22 19:26 Albumin 3.1 g/dL (3.5-5.2) L 09/28/22 19:26 Globulin 3.1 g/dL (1.3-4.6) 09/28/22 19:26 Discharge Plan Discharge Patient Disposition: Home Clinical Impression: Vaginal bleeding Condition: Stable Prescriptions: No Action valacyclovir 1 gram tablet 1,000 mg PO DAILY Se-Tr-19 29 mg iron- 1 mg tablet 1 tab PO DAILY ferrous sulfate 325 mg (65 mg iron) tablet,delayed release (DR/EC) 325 mg PO DAILY Qty: 30 2RF Discharge Orders: Discharge ED (Routine); Ordered 09/28/22 Ordered By: Rich Gann Referrals: Minesh Chi MD [Primary Care Provider] - 1 week Patient Instructions: Bleeding (ED) Activity Restrictions/Additional Instructions: Please follow-up with your family practice doctor and/or OB as needed. Please return to the ER if symptoms worsen. Coding Level of Care Code ED Pellet Post Inspector for Yaz Elizalde
[2022-09-28 20:07] LABS: Alanine Aminotransferase 31 U/L (0-33); Albumin Level 3.1 g/dL (3.5-5.2); Alkaline Phosphatase 101 U/L (35-105); Anion Gap 14.7 (5-19); Aspartate Amino Transferase 34 U/L (0-32); Blood Urea Nitrogen 5 mg/dL (6-20); Calcium 9.2 mg/dL (8.5-10.5); Carbon Dioxide 24 mmol/L (22-29); Chloride 102 mmol/L (98-107); Globulin 3.1 g/dL (1.3-4.6); Glomerular Filtration Rate 201.5 mL/min (90-130); Glucose 98 mg/dL (65-115); Osmolality Calculated 281 mOsm/kg (285-295); Potassium 3.7 mmol/L (3.5-5.1); Sodium 137 mmol/L (136-145); Total Bilirubin 0.5 mg/dL (0.15-1.2); Total Protein 6.2 g/dL (6.6-8.7)
[2022-09-28 20:39] VITALS: BP 129/64; PULSE 96; RESP 16; O2SAT 98
== END 2022-09-28 20:45 | disposition home or self-care (01) ==
PROVIDERS: Nurse Practitioner Family; Emergency Provider Emergency Medicine; PCP Family Medicine
DX: N93.9 Abnormal uterine and vaginal bleeding, unspecified (principal); F17.210 Nicotine dependence, cigarettes, uncomplicated
CPT/HCPCS: 36415; 80053; 85025; 96360; 99284; J7030

== ENCOUNTER 2023-01-17 07:30 | Outpatient (CLI) | payer BC, MEDICAID, SELFPAY ==
--- NOTE | 2023-01-17 07:39 | US_ITS ---
WS: [id number] EARLY OBSTETRICAL ULTRASOUND (<14 WEEKS). HISTORY: SUPERVISION OF OTHER NORMAL ,FIRST TRIMESTER COMPARISON: None available. Single intrauterine gestational sac is identified. Cardiac activity at 171 BPM. Jenera-rump length janet sures 2.1 cm which corresponds to a gestation of 8w5d. Normal-appearing yolk sac and amnion demonstra anamika. Small subchronic hemorrhage measures 2.3 x 1.8 x 1.9 cm. Subchorionic hemorrhage. No free fluid. Normal size ovaries with no mass. Corpus luteal cyst associated with the LEFT ovary measures 1.8 x 1. 8 x 1.3 cm. IMPRESSION: 1. Single intrauterine gestation of 8 weeks 5 days with an EDC of 08/24/2023. 2. Very small subchorionic hemorrhage.
== END 2023-01-17 07:31 | disposition home or self-care (01) ==
PROVIDERS: PCP Family Medicine; Visit Provider Family Medicine
DX: Z34.81 Encounter for supervision of other normal pregnancy, first trimester (principal); Z3A.08 8 weeks gestation of pregnancy
CPT/HCPCS: 76801; 76817

== ENCOUNTER 2023-06-14 15:03 | Outpatient (CLI) | payer MEDICAID, SELFPAY ==
[2023-06-14 15:05] VITALS: BMI 29.7
[2023-06-14 15:16] VITALS: BP 118/58; PULSE 94
[2023-06-14 15:31] VITALS: BP 123/56; PULSE 88
[2023-06-14 15:48] VITALS: BP 123/56; PULSE 88
== END 2023-06-14 15:48 | disposition home or self-care (01) ==
LOC: OPOB 15:05 → OBGYN 15:06
PROVIDERS: PCP Family Medicine; Visit Provider Family Medicine
DX: O36.8190 Decreased fetal movements, unspecified trimester, not applicable or unspecified (principal); Z3A.00 Weeks of gestation of pregnancy not specified
CPT/HCPCS: 59025; 99211

== ENCOUNTER 2023-07-03 09:53 | Outpatient (CLI) | payer MEDICAID, SELFPAY ==
[2023-07-03 10:07] VITALS: BP 114/62; PULSE 90
[2023-07-03 10:24] VITALS: BMI 31.4
[2023-07-03 10:54] LABS: Nitrazine Paper, PH Negative
[2023-07-03 11:01] LABS: Actim Prom Negative
[2023-07-03 11:06] VITALS: BP 107/64; PULSE 85
== END 2023-07-03 11:15 | disposition home or self-care (01) ==
LOC: OPOB 09:55 → OBGYN 09:55
PROVIDERS: PCP Family Medicine; Visit Provider Family Medicine
DX: O26.899 Other specified pregnancy related conditions, unspecified trimester (principal); Z3A.00 Weeks of gestation of pregnancy not specified
CPT/HCPCS: 59025; 83986; 84112; 99211

== ENCOUNTER 2023-07-27 23:25 | Outpatient (CLI) | payer MEDICAID, SELFPAY ==
[2023-07-27 23:25] VITALS: BMI 31.8
[2023-07-27 23:48] VITALS: BP 116/57; PULSE 75
[2023-07-28] VITALS (12 sets, daily range): BP systolic 93–121; BP diastolic 49–67; PULSE 66–91; RESP 17
--- NOTE | 2023-07-28 00:11 | USR_ITS ---
PROCEDURE INFORMATION: Exam: US Biophysical Profile Without Non-Stress Test Exam date and time: 07/28/2023 1:31 AM Age: 22 years old Clinical indication: Injury or trauma; Fall; ; Additional info: Fall, heart tones TECHNIQUE: Imaging protocol: US biophysical profile without non-stress testing. COMPARISON: [place] [id number] 05/02/2023 1:03 PM FINDINGS: Single living fetus in cephalic position. heart activity documented by the technologist, 122 bpm. Biophysical profile was 10/10. Anterior placenta. Subjectively, amniotic fluid volume appears within normal limits for gestation on the provided images. ANJEL was not measured at this time. Deepest vertical pocket measured was 3.3 cm. measurements were not obtained at this time. Evaluation of anatomy was not performed at this time. Cervical length was estimated with transabdominal scanning, measuring approximately 3.5 cm. The region of the cervix was not well visualized at this time. No definite cervical canal dilation or fluid on the provided images. The urinary bladder was not completely evaluated/imaged at this time. US/US OB BPP wo NST [id number] IMPRESSION: 1. Single living intrauterine fetus, details above. 2. Biophysical profile 10/10. 3. Subjectively, amniotic fluid volume appears within normal limits for gestation, see above. 4. Other details discussed above.
== END 2023-07-28 02:44 | disposition home or self-care (01) ==
LOC: OPOB 23:37 → OBGYN 23:38
PROVIDERS: PCP Family Medicine; Visit Provider Family Medicine
DX: O26.899 Other specified pregnancy related conditions, unspecified trimester (principal); Z3A.00 Weeks of gestation of pregnancy not specified; R60.9 Edema, unspecified; Z91.81 History of falling
CPT/HCPCS: 59025; 76819; 99211

== ENCOUNTER 2023-07-31 12:07 | Outpatient (CLI) | payer MEDICAID, SELFPAY ==
[2023-07-31 12:15] VITALS: BMI 30.9
[2023-07-31 12:19] VITALS: BP 128/66; PULSE 114
[2023-07-31 13:01] VITALS: BP 114/62; PULSE 108
[2023-07-31 13:21] LABS: Nitrazine Paper, PH Negative
[2023-07-31 13:41] LABS: Nitrazine Paper, PH Negative
== END 2023-07-31 13:05 | disposition home or self-care (01) ==
LOC: OPOB 12:10 → OBGYN 12:11
PROVIDERS: PCP Family Medicine; Visit Provider Family Medicine
DX: O26.899 Other specified pregnancy related conditions, unspecified trimester (principal); Z3A.00 Weeks of gestation of pregnancy not specified; N89.8 Other specified noninflammatory disorders of vagina
CPT/HCPCS: 59025; 83986; 99211

== ENCOUNTER 2023-08-05 17:23 | Outpatient (CLI) | payer MEDICAID, SELFPAY ==
[2023-08-05] VITALS (19 sets, daily range): BP systolic 105–127; BP diastolic 51–82; PULSE 76–97; RESP 17; O2SAT 92–99; BMI 30.1
[2023-08-05 17:48] LABS: Glucose Point of Care 85 mg/dL (70-110)
[2023-08-05 17:55] LABS: Basophils # 0.1 10^3/uL (0.0-0.1); Basophils % 0.5 %; Eosinophils # 0.1 10^3/uL (0.0-0.8); Eosinophils % 0.6 %; Hematocrit 33.5 % (36-47); Lymphocytes # 2.1 10^3/uL (0.8-4.8); Lymphocytes % 18.3 %; Mean Corpuscular Hemoglobin 22.3 pg (27-33); Mean Corpuscular Volume 71.7 fl (85-98); Mean Platelet Volume 11.1 fL (7.4-10.4); Monocytes # 0.7 10^3/uL (0.2-0.9); Monocytes % 6.2 %; Neutrophils # 8.48 10^3/uL (1.8-7.7); Neutrophils % 73.6 %; Nucleated Red Blood Cells % 0 %; Platelet Count 343 10^3/cmm (157-399); Red Blood Count 4.67 10^6/uL (3.85-5.65); Red Cell Distribution Width 16.1 % (12.1-15.1); White Blood Count 11.52 10^3/uL (3.29-11.43)
[2023-08-05] MEDS: lactated ringers 1,000 ML 999 ML IV (18:04)
[2023-08-05 18:13] LABS: Alanine Aminotransferase 11 U/L (0-33); Albumin Level 3.5 g/dL (3.5-5.2); Alkaline Phosphatase 241 U/L (35-105); Anion Gap 18.9 (5-19); Aspartate Amino Transferase 22 U/L (0-32); Blood Urea Nitrogen 6 mg/dL (6-20); Calcium 8.5 mg/dL (8.5-10.5); Carbon Dioxide 17 mmol/L (22-29); Chloride 104 mmol/L (98-107); Creatinine Clr Calc Pharmacy 291.6698; Globulin 3.6 g/dL (1.3-4.6); Glomerular Filtration Rate 280.8 mL/min (90-130); Glucose 64 mg/dL (65-115); Osmolality Calculated 278 mOsm/kg (285-295); Potassium 3.9 mmol/L (3.5-5.1); Sodium 136 mmol/L (136-145); Total Bilirubin 0.7 mg/dL (0.15-1.2); Total Protein 7.1 g/dL (6.6-8.7)
[2023-08-05 18:15] LABS: Urine Color Yellow (Yellow)
[2023-08-05 18:16] LABS: Add Urine Culture? No; Bacteria Urine TRACE /hpf; Bilirubin Urine 1+ (Negative); Blood Urine Neg (Negative); Glucose Urine UA Norm (Normal); Ketones Urine 1+ (Negative); Leukocyte Esterase Urine Trace (Negative); Nitrate Urine Negative (Negative); Protein Urine Neg (Negative); Specific Gravity, Urine 1.015 (1.005-1.030); Squamous Epithelial Cell Urine 0-4 /hpf (0-5); Urine Appearance Slightly Cloudy (CLEAR); Urobilinogen Urine 1 mg/dL (Negative); WBC Urine RARE /hpf (0-5); pH Urine 6 (5-7)
[2023-08-05 18:17] LABS: Amphetamines Screen Urine Negative (Negative); Barbiturates Screen Urine Negative (Negative); Benzodiazepines Screen Urine Negative (Negative); Cocaine Screen Urine Negative (Negative); Opiate Screen Urine Negative (Negative); PCP Screen Urine Negative (Negative); THC Screen Urine Negative (Negative)
== END 2023-08-05 20:07 | disposition home or self-care (01) ==
LOC: OPOB 17:24 → OBGYN 17:24
PROVIDERS: PCP Family Medicine; Visit Provider Family Medicine
DX: O26.899 Other specified pregnancy related conditions, unspecified trimester (principal); Z3A.00 Weeks of gestation of pregnancy not specified; R10.2 Pelvic and perineal pain
CPT/HCPCS: 36415; 36416; 80053; 80306; 81001; 82962; 85025; J7120

== ENCOUNTER 2023-08-08 21:05 | Outpatient (CLI) | payer MEDICAID, SELFPAY ==
[2023-08-08 21:05] VITALS: BMI 32.2
[2023-08-08 21:27] VITALS: BP 108/63; PULSE 104
[2023-08-08 21:43] VITALS: BP 138/64; PULSE 96
[2023-08-08 22:05] VITALS: BP 138/64; PULSE 96; RESP 16; TEMP 36.4
[2023-08-08 23:30] LABS: Nitrazine Paper, PH Negative
== END 2023-08-08 22:05 | disposition home or self-care (01) ==
LOC: OPOB 21:06 → OBGYN 21:14
PROVIDERS: PCP Family Medicine; Visit Provider Obstetrics & Gynecology
DX: O26.899 Other specified pregnancy related conditions, unspecified trimester (principal); Z3A.00 Weeks of gestation of pregnancy not specified; R10.9 Unspecified abdominal pain
CPT/HCPCS: 59025; 83986; 99211

== ENCOUNTER 2023-08-16 05:35 | Inpatient (IN) | payer MEDICAID, SELFPAY ==
[2023-08-15] VITALS (30 sets, daily range): BP systolic 105–156; BP diastolic 56–85; PULSE 70–116; O2SAT 84–100; BMI 32.8
[2023-08-15] MEDS: lactated ringers 1,000 ML 999 ML IV (21:32)
[2023-08-15 21:33] LABS: Basophils # 0.1 10^3/uL (0.0-0.1); Basophils % 0.3 %; Eosinophils # 0.1 10^3/uL (0.0-0.8); Eosinophils % 0.6 %; Hematocrit 31.3 % (36-47); Lymphocytes % 20.9 %; Mean Corpuscular Hemoglobin 21.7 pg (27-33); Mean Corpuscular Volume 72.1 fl (85-98); Mean Platelet Volume 10.8 fL (7.4-10.4); Monocytes # 0.8 10^3/uL (0.2-0.9); Monocytes % 5.5 %; Neutrophils % 71.8 %; Nucleated Red Blood Cells % 0 %; Platelet Count 320 10^3/cmm (157-399); Red Blood Count 4.34 10^6/uL (3.85-5.65); White Blood Count 14.48 10^3/uL (3.29-11.43)
[2023-08-15 22:20] LABS: Slide Review Slide Review Perform
[2023-08-15] MEDS: dextrose 5%-lactated ringers 1,000 ML 125 ML IV (23:01)
--- NOTE | 2023-08-15 23:17 | P.ANESASSM_ITS ---
Pre-Anesthetic Assessment Height/Weight: Height 1.6 m Weight 83.915 kg Pulse BP Pulse Ox O2 Del Method 79 120/65 100 Room Air 08/15/23 23:14 08/15/23 23:14 08/15/23 23:14 08/15/23 21:14 Preop Diagnosis: Labor pain MATTHEW Was Beta Hailee taken within 24 hours: N/A Was Clonidine taken within 24 hours: N/A Social No alcohol and No tobacco Exam alert, oriented x 3, clear to auscultation bilaterally and regular rate & rhythm Airway Submandibular: within normal limits Cervical ROM: within normal limits Mallampati: Class II Dentition: chipped Comments: Comments: Poor dentition History/ROS No significant history except as noted and No significant complaints Pulmonary Asthma CV/HEM None reported None reported Hx genital herpes Hepatic None reported GI None reported Metabolic None reported Musc/skel None reported Neuropsych None reported Anesthetic Plan ASA status: 2 Anesthesia: Anesthesia Evaluation and Regional (specify below) Risk of > 500 ml blood loss (7ml/kg in children): No Medications/Allergies Home Medications Medication Instructions Recorded Confirmed Last Taken Type acyclovir 1 tab PO DAILY 07/28/23 08/15/23 08/15/23 History Allergies Allergy/AdvReac Type Severity Reaction Status Date / Time Penicillins Allergy ADR-Itching Verified 08/08/23 22:37 Current Medications Generic Name Dose Route Start Last Admin Trade Name Freq PRN Reason Stop Dose Admin Dextrose/Lactated Ringer's 1,000 mls @ 125 mls/hr 08/15/23 21:15 08/15/23 23:01 Dextrose 5%-Lactated Ringers IV 125 mls/hr .Q8H GRACE Administration Lactated Ringer's 1,000 mls @ 999 mls/hr 08/15/23 21:09 08/15/23 21:32 Lactated Ringers IV 999 mls/hr .Q1H1M PRN Administration BLEEDING PFSH Anesthesia Surgical History No pertinent past surgical history Family History Denies family history of Colon cancer Ovarian cancer Diabetes Heart disease Hypercholesteremia Breast cancer Hypertension Uterine cancer Stroke Social History Smoking and tobacco/nicotine status: current every day tobacco/nicotine user e- cigarettes E-Cigarette Details: vaporizer device and with nicotine Quit status (tobacco/nicotine): not considering quitting Second hand smoke exposure: No Alcohol intake: never Substance/Drug Use: never Adopted: Yes Lives independently: Yes Household members: other Housing: Manufactured/Mobile home Highest education level completed: 12th Grade, No Diploma service: No Current occupational status: unemployed Pets and animals: Yes Sexually active: Yes Do you think of yourself as: Straight/Heterosexual Current gender identity: Female Special sharon needs: No Female Reproductive History : 6 Data Anesthesia 08/15/23 21:15 Short CBC 08/15/23 Range/Units 21:15 WBC 14.48 H (3.29-11.43) 10^3/uL Hgb 9.40 L (11.27-16.99) g/dL Hct 31.3 L (36-47) % MCV 72.1 L (85-98) fl Plt Count 320 (157-399) 10^3/cmm Neut % (Auto) 71.8 % Neut # (Auto) 10.40 H (1.8-7.7) 10^3/uL Blood Bank 08/15/23 21:15 Blood Type A Positive Rho(D) Type Rh positive Cardiac Studies: 2 No Data to Display
--- NOTE | 2023-08-15 23:19 | ANES.PROC ---
Anesthesia Procedures Procedure/Date: 08/15/23 Epidural: Time Out Performed: Yes Consents Signed: Procedure Consent Consent: requested by attending/covering physician, from patient, risks and benefits reviewed and patient agrees to proceed Lumbar Level: L3-L4 Epidural position: sitting Epidural procedure: sterile prep of area, 1% lidocaine to numb the area, 18 g needle, neg for paresthesia, test dose given, 1.5% xylocaine 1:200k epi (5cc), 0.2% Ropivacaine bolus ml (4cc and Fentanyl 100mcg), placed PCEA, no systemic response, sterile dressing applied, L.U.D. no apparent complications and 0.2% Ropiavacaine @ mls/hr (10cc/hour. Pt tolerated well)
[2023-08-15] MEDS: ROPivacaine syringe 100 MG/50 ML SYRINGE 10 MG EPIDURAL (23:22)
[2023-08-16] VITALS (54 sets, daily range): BP systolic 95–136; BP diastolic 51–87; PULSE 60–112; RESP 16–18; TEMP 36.5–37.1; O2SAT 97–99
[2023-08-16] MEDS: acetaminophen 325 mg Tablet 650 MG PO (00:58)
[2023-08-16] MEDS: oxytocin 30 UNIT/500 ML BAG IV (02:45)
[2023-08-16] MEDS: ROPivacaine syringe 100 MG/50 ML SYRINGE 10 MG EPIDURAL (04:03)
--- NOTE | 2023-08-16 05:34 | PM.OPHPUD ---
Labor & Delivery H&P Update Date of Procedure: August 16, 2023 Date H&P Performed: 08/15/23 Changes to previous documentation: The patient cervix had dilated to 5 cm and she was having some moderate vaginal bleeding. Admission Diagnosis: A 23-year-old 6 para 2-0-3-2 at 38 weeks and 6 days. Preop diagnosis: Labor pain Planned procedure: Vaginal delivery Other information: The patient was seen in my office yesterday where she was noted to be 3 cm dilated and 50% effaced. Yesterday evening she showed up at the hospital complaining of more bleeding and having consistent contractions. She was placed on the monitor and found to be having contractions every 3 to 5 minutes. She was also noted to be dilated to 5 cm. As result she was admitted for labor and delivery. Her is notable for being positive for chlamydia. She was treated, and tested negative on June 10. She also has a history of genital HPV, and has been on acyclovir since 36 weeks. There have been no active lesions with the patient is aware or that is noted on examination. Otherwise her labs were relatively unremarkable. Related Problem List Diagnoses (1) 38 weeks gestation of : (2) Active labor: A&P Assessment and plan (1) 38 weeks gestation of : I anticipate routine labor. The patient's contractions did begin to space out, and she labor has been augmented with Cytotec and Pitocin. Status: Acute (2) Active labor: Status: Acute
--- NOTE | 2023-08-16 06:57 | P.PCNOB_ITS ---
Delivery Note: Date of delivery: August 16, 2023 Pre-delivery diagnoses: 1. 23-year-old 6 para 2-0-3-2 a t 38 weeks and 6 days in active labor Post-delivery diagnoses: Status post spontaneous vaginal delivery Procedure: Spontaneous vaginal delivery Delivering Physician: Jose Godoy Estimated blood loss (mL): 150 Delivery: DELIVERY: The patient progressed to complete without difficulty. She delivered a female with a weight of 8 pounds 6 ounces with Apgars of 8, 9. The baby was delivered from the HILDA position. The baby's mouth and nose were suctioned at the site of the perineum. The baby was then completely delivered and placed on the mother's abdomen. The cord was then clamped and cut. There was no nuchal cord. There was no meconium. The placenta and 3 vessel cord were delivered intact shortly thereafter. The perineum and vaginal vault were carefully examined. No lacerations were noted. Both the mother and the baby were in stable condition. Post-Delivery Status: Good History History History 6 Term 0 0 Miscarriages/Ectopic 3 Living Children 2 A&P Assessment and plan (1) Spontaneous vaginal delivery: I anticipate routine care Coding Level of Care Code Acute Code for Chg Fwd Diagnoses Spontaneous vaginal delivery O80
[2023-08-16] MEDS: dextrose 5%-lactated ringers 1,000 ML 125 ML IV (06:58)
[2023-08-16] MEDS: tranexamic acid 1,000 MG/100 ML PREMIX 600 MG IV (07:09)
[2023-08-16] MEDS: miSOPROStol 200 mcg Tablet 800 MCG PR (07:10)
--- NOTE | 2023-08-16 08:40 | ANE.PACU2 ---
Inpatient post-anesthesia follow up: Airway intact: Yes Vital signs: Temperature Pulse Rate 89 Respiratory Rate Blood Pressure 130/82 Pulse Oximetry 98 Oxygen Delivery Me thod Room Air Oxygen Flow Rate Fraction of Inspir ed Oxygen Hydration adequate: Yes Nausea and vomiting: No Pain level: 2 Mental status: Baseline Epidural Start/End: Epidural Start Date: 08/15/23 Epidural Start Time: 22:50 Epidural End Date: 08/16/23 Epidural End Time: 08:00
[2023-08-16] MEDS: ibuprofen 800 mg tablet PO ×3 (09:02→20:51)
[2023-08-16] MEDS: PRENATAL VIT NO.130/IRON/FOLIC 1 EACH TABLET PO (09:03)
[2023-08-16] MEDS: docusate sodium 100 mg Capsule PO ×2 (09:03→18:00)
--- NOTE | 2023-08-16 18:27 | PC.NURSE ---
Pt ambulated to OB[facility] for routine post care. Oriented to room/call light. Proud parent pack and feeding log discussed. Went over visiting hours, and plan of care.
[2023-08-16 19:52] LABS: Hematocrit 31.3 % (36-47); Mean Corpuscular Volume 73.1 fl (85-98); Mean Platelet Volume 10.6 fL (7.4-10.4); Platelet Count 292 10^3/cmm (157-399); Red Blood Count 4.28 10^6/uL (3.85-5.65); Red Cell Distribution Width 16.9 % (12.1-15.1); White Blood Count 19.82 10^3/uL (3.29-11.43)
[2023-08-16] MEDS: benzocaine-menthol 78 gm Canister 1 SPRAY TOPICAL (20:51)
[2023-08-16] MEDS: lanolin oint 7 gm 1 APPLIC TOPICAL (20:51)
[2023-08-17 04:00] VITALS: BP 97/55; PULSE 65; RESP 16; TEMP 36.6; TEMP 36.7; O2SAT 98
--- NOTE | 2023-08-17 07:38 | PM.OBGYDC ---
Discharge Providers BLADE CHANGER Date of Admission: 08/16/23 05:35 Date of Discharge: 08/17/23 Attending Provider at Admission: Jose Godoy MD Attending Provider at Discharge: Jose Godoy MD Primary Care Provider: Minesh Chi MD Diagnoses at Discharge Discharge Diagnosis (1) Spontaneous vaginal delivery: Status: Acute Reason for Visit Reason for Visit: bleeding; poss srom; vaginal pressure Information Peripartum Data: Delivery Method: Vaginal Physical Exam Narrative: The patient is alert. She appears comfortable. Her heart has a regular rate and rhythm with no murmurs appreciated. Lungs are clear to auscultation bilaterally. Her fundus is firm and below the umbilicus. Urinary Catheter Management: Camara Latex: Cath Placed During This Visit: yes, but has since been removed by the nurse Reason for Continuing Indwelling Catheter: Decision to DC Catheter Urinary Catheter Date of Insertion: 08/15/23 Urinary Catheter Time of Insertion: 23:40 Date Urinary Catheter Removed: 08/16/23 Time Urinary Catheter Discontinued: 06:55 History History History 6 Term 3 0 Miscarriages/Ectopic 3 Living Children 3 Discharge Data Studies Completed and Pending Pending at discharge Category Date Time Status Complete Blood Count w/Auto Routine Lab 08/15/23 21:15 Results Hemagram Timed Lab 08/16/23 19:39 Ordered Type and Screen Routine Lab 08/15/23 21:15 Received Laboratory Results WBC 19.82 10^3/uL (3.29-11.43) H 08/16/23 19:34 RBC 4.28 10^6/uL (3.85-5.65) 08/16/23 19:34 Hgb 9.40 g/dL (11.27-16.99) L 08/16/23 19:34 Hct 31.3 % (36-47) L 08/16/23 19:34 MCV 73.1 fl (85-98) L 08/16/23 19:34 MCH 22.0 pg (27-33) L 08/16/23 19:34 MCHC 30.0 g/dL (30-55) 08/16/23 19:34 RDW 16.9 % (12.1-15.1) H 08/16/23 19:34 Plt Count 292 10^3/cmm (157-399) 08/16/23 19:34 MPV 10.6 fL (7.4-10.4) H 08/16/23 19:34 Neut % (Auto) 71.8 % 08/15/23 21:15 Lymph % (Auto) 20.9 % 08/15/23 21:15 [place] % (Auto) 5.5 % 08/15/23 21:15 Eos % (Auto) 0.6 % 08/15/23 21:15 Baso % (Auto) 0.3 % 08/15/23 21:15 Neut # (Auto) 10.40 10^3/uL (1.8-7.7) H 08/15/23 21:15 Lymph # (Auto) 3.0 10^3/uL (0.8-4.8) 08/15/23 21:15 [place] # (Auto) 0.8 10^3/uL (0.2-0.9) 08/15/23 21:15 Eos # (Auto) 0.1 10^3/uL (0.0-0.8) 08/15/23 21:15 Baso # (Auto) 0.1 10^3/uL (0.0-0.1) 08/15/23 21:15 Nucleated RBC % (auto) 0 % 08/15/23 21:15 Nucleated RBCs # 0.0 /100WBC 08/15/23 21:15 Blood Type A Positive 08/15/23 21:15 Rho(D) Type Rh positive 08/15/23 21:15 Antibody Screen Negative 08/15/23 21:15 Vitals Last Vital Signs Temp 98.0 F 08/17/23 04:00 Pulse 65 08/17/23 04:00 Resp 16 08/17/23 04:00 BP 97/55 08/17/23 04:00 Pulse Ox 98 08/17/23 04:00 O2 Del Method Room Air 08/17/23 04:00 Results Labs OB ([facility]): Obstetrics US 05/02/23 Obstetrics US/Biophysical Profile 07/28/23 Blood Type A Positive 08/15/23 Antibody Screen Negative 08/15/23 Hct 31.3 % (36-47) L 08/16/23 Hgb 9.40 g/dL (11.27-16.99) L 08/16/23 Rho(D) Type Rh positive 08/15/23 Plt Count 292 10^3/cmm (157-399) 08/16/23 RPR Nonreactive (Nonreactive) 05/23/20 Uric Acid 3.7 mg/dL (2.4-5.7) 07/25/21 HCG, Qual Negative (Negative) 06/22/20 Urine Opiates Screen Negative ng/mL (Negative) 08/05/23 Ur Barbiturates Screen Negative ng/mL (Negative) 08/05/23 Ur Phencyclidine Scrn Negative ng/mL (Negative) 08/05/23 Ur Amphetamines Screen Negative ng/mL (Negative) 08/05/23 U Benzodiazepines Scrn Negative ng/mL (Negative) 08/05/23 Urine Cocaine Screen Negative ng/mL (Negative) 08/05/23 U Marijuana (THC) Screen Negative ng/mL (Negative) 08/05/23 Micro Urine Specimen 04/15/21 Discharge Plan Discharge Patient Disposition: Home Condition: Stable Prescriptions: New ibuprofen 800 mg Tablet 800 mg PO TID Qty: 45 0RF Vitamin 27 mg iron- 800 mcg Tablet 1 tab PO DAILY Qty: 90 0RF Discontinued acyclovir 1 tab PO DAILY Discharge Orders: Discharge Order (Routine); Ordered 08/17/23 Ordered By: Jose Godoy Referrals: Jose Godoy MD [Physician] - Minesh Chi MD [Primary Care Provider] - 4-7 days (Also set up appointment for 6 weeks.) Discharge Diet: Usual diet Discharge Activity: Limit activity as instructed Patient Instructions: Depression (DC), Opioid Safety (DC), Preeclampsia and Eclampsia After Delivery (GEN), Hemorrhage (DC), OB Discharge Report, OB Food/Drug Interaction Guide, OB Care at Home, Opioid Safety, OB Vaginal Deliveries, Abnormal Bleeding Discharge Attestations BLADE CHANGER Time Spent in Discharge Care*: less than 30 min Coding Level of Care Code Acute Code for Chg Fwd Diagnoses Spontaneous vaginal delivery O80
[2023-08-17] MEDS: ibuprofen 800 mg tablet PO (08:49)
[2023-08-17] MEDS: docusate sodium 100 mg Capsule PO (08:50)
[2023-08-17] MEDS: PRENATAL VIT NO.130/IRON/FOLIC 1 EACH TABLET PO (08:50)
[2023-08-17 09:40] VITALS: BP 133/72; PULSE 75; RESP 16; TEMP 36.5
== END 2023-08-17 10:00 | disposition home or self-care (01) | DRG 807 ==
LOC: OPOB 11:48 → OBGYN 11:48
PROVIDERS: Admitting Provider Family Medicine; PCP Family Medicine; Visit Provider Family Medicine
DX: O98.32 Other infections with a predominantly sexual mode of transmission complicating childbirth (principal); Z37.0 Single live birth; Z3A.38 38 weeks gestation of pregnancy; A60.09 Herpesviral infection of other urogenital tract
CPT/HCPCS: 36415; 51702; 59025; 59409; 83986; 85025; 85027; 86850; 86900; 96374; 98960; 99211; J2590; J2795; J3010; J7120; J7121

== ENCOUNTER 2023-08-18 20:11 | Emergency (ER) | payer MEDICAID, SELFPAY ==
[2023-08-18 20:16] VITALS: BP 131/85; PULSE 87; RESP 16; TEMP 37.1; O2SAT 97; BMI 30.6
--- NOTE | 2023-08-18 20:38 | USR_ITS ---
PROCEDURE INFORMATION: Exam: US Pelvis, Transvaginal, Non-Obstetric Exam date and time: 08/18/2023 9:41 PM Age: 23 years old Clinical indication: Other: Bleeding; Additional info: vaginal bleeding TECHNIQUE: Imaging protocol: Real-time transvaginal pelvic (non-obstetric) ultrasound with image documentation. Transvaginal imaging was used for better evaluation of the endometrium, adnexa, and/or cervix. COMPARISON: US OB <=14 wk fetus w transvag 01/17/2023 7:47 AM FINDINGS: Uterus: 15.4 x 9.8 x 9.2 cm. Inhomogeneous hypervascular material in the lower endometrial cavity measuring 2.6 cm in thickness. Inhomogeneous material in the endocervical canal measuring 2.2 cm in thickness. Increased vascularity in the mid and upper endometrial cavity with ill-defined margins. Right ovary/adnexa: Not visualized. Left ovary/adnexa: Not visualized. Urinary bladder: Urinary bladder is limited. Intraperitoneal space: Trace fluid in the cul-de-sac. US/US transvaginal [id number] IMPRESSION: 1. Inhomogenous material in the lower uterine endometrial cavity and endocervical canal. This could represent blood clot and/or retained products of conception. Correlation with quantitative HCG values recommended.
[2023-08-18 20:50] LABS: Basophils % 0.2 %; Eosinophils # 0.2 10^3/uL (0.0-0.8); Eosinophils % 1.7 %; Hematocrit 25.9 % (36-47); Lymphocytes # 1.6 10^3/uL (0.8-4.8); Lymphocytes % 13.4 %; Mean Corpuscular HGB Conc 30.1 g/dL (30-55); Mean Platelet Volume 10.1 fL (7.4-10.4); Monocytes # 0.5 10^3/uL (0.2-0.9); Monocytes % 4.6 %; Neutrophils # 9.14 10^3/uL (1.8-7.7); Neutrophils % 78.7 %; Nucleated Red Blood Cells % 0 %; Platelet Count 285 10^3/cmm (157-399); Red Blood Count 3.55 10^6/uL (3.85-5.65); Red Cell Distribution Width 17.2 % (12.1-15.1)
--- NOTE | 2023-08-18 20:55 | ED_ITS ---
Documented by User: FREDIS Escalona 08/18/23 23:27 HPI - Female Genitourinary 2 General: Chief complaint: Urogenital-Female Stated complaint: just had a baby two days ago/passed large clot Time Seen by Provider: 08/18/23 20:30 History of Present Illness: 23-year-old female delivered on of this week and comes in today for concerns of passing a large clot. Patient had awakened from a nap and when she stood up she noticed a large clot in her pad. Patient usually goes through about 4-5 pads a day. Patient appears nontoxic. Patient denies any fever. Patient reports no significant pain but occasional cramping. Patient also complains of no bowel movement since delivery. Review of Systems 2 General: Reports: 10 or more systems reviewed and unremarkable except in HPI and below GI: Reports: constipation : Reports: vaginal bleeding PFSH ED 2 PFSH: Surgical History No pertinent past surgical history Family History Denies family history of Colon cancer Ovarian cancer Diabetes Heart disease Hypercholesteremia Breast cancer Hypertension Uterine cancer Stroke Social History Smoking and tobacco/nicotine status: current every day tobacco/nicotine user e- cigarettes E-Cigarette Details: vaporizer device and with nicotine Quit status (tobacco/nicotine): not considering quitting Second hand smoke exposure: No Alcohol intake: never Substance/Drug Use: never Adopted: Yes Lives independently: Yes Household members: other Housing: Manufactured/Mobile home Highest education level completed: 12th Grade, No Diploma service: No Current occupational status: unemployed Pets and animals: Yes Sexually active: Yes Do you think of yourself as: Straight/Heterosexual Current gender identity: Female Special sharon needs: No Physical Exam 2 Const: COMMON NORMALS: alert HENMT: COMMON NORMALS: normocephalic HEAD & SCALP: normocephalic Neck/C-Spine: COMMON NORMALS: full ROM Resp: COMMON NORMALS: normal respiratory effort and clear to auscultation bilaterally AUSCULTATION: clear to auscultation bilaterally Cardio: COMMON NORMALS: regular rate RATE: regular rate GI: COMMON NORMALS: Soft to palpation PALPATION: Yes Soft to palpation Back/Pelvis: COMMON NORMALS: thoracic and lumbar spine normal to inspection Extremity: COMMON NORMALS: full ROM Neuro: SENSORIUM/ORIENTATION: Yes alert Skin: COMMON NORMALS: turgor normal GENERAL SKIN EXAM: turgor normal Course 2 Vital Signs: Vital signs: Vital Signs Temperature 98.7 F 08/18/23 20:16 Pulse Rate 84 08/18/23 23:23 Respiratory Rate 16 08/18/23 23:23 Blood Pressure 124/58 08/18/23 23:23 Pulse Oximetry 99 08/18/23 23:23 Oxygen Delivery Me thod Room Air 08/18/23 20:16 MDM - Female Medical Decision Making 23-year-old female comes in today for complaints of passing a large clot and some increased bleeding status post delivery of child 2 days ago. Patient delivered on morning and was discharged on Sunday morning. Patient's had no fever. Patient noticed a large clot being passed after getting up from a nap this afternoon. Patient denies any lightheadedness. Patient appears nontoxic. Skin is warm and dry. Vital signs are normal. Differential diagnosis hemorrhage, retained products of conception, uterine laceration, anemia. 2114, reviewed patient's hemoglobin which was 7.8 on today's blood draw. Prior hemoglobin was 9.4 on day of delivery. Reviewed this with Dr. Valdivia, attending ER physician, he believes that this may be a normal amount of blood loss after delivery but she would need to have a repeat blood draw within the next 48 hours. We will talk with patient regarding this at discharge. We are awaiting remainder of lab work and ultrasound. Orthostatic blood pressures were normal. Ultrasound was unremarkable did note some complex irregular imaging in the uterus which most likely is either blood clot or retained products of conception. We will add a quantitative hCG. Patient's bleeding has been normal throughout the ER stay with no significant blood loss. Reviewed exam with patient with recommendations for return to the ER for worsening bleeding greater than 1 pad an hour, fever greater than 100.4, or feeling like she is going to pass out. I also recommended patient have a repeat blood draw in 2 days to recheck her hemoglobin. Recommended patient to follow-up with her primary care or return to the ER for this testing. Lab Data 08/18/23 20:42 08/18/23 20:42 Radiology Impressions Transvaginal US 08/18/23 20:38 IMPRESSION: 1. Inhomogenous material in the lower uterine endometrial cavity and endocervical canal. This could represent blood clot and/or retained products of conception. Correlation with quantitative HCG values recommended. Laboratory Results WBC 11.60 10^3/uL (3.29-11.43) H 08/18/23 20:42 RBC 3.55 10^6/uL (3.85-5.65) L 08/18/23 20:42 Hgb 7.80 g/dL (11.27-16.99) L 08/18/23 20:42 Hct 25.9 % (36-47) L 08/18/23 20:42 MCV 73.0 fl (85-98) L 08/18/23 20:42 MCH 22.0 pg (27-33) L 08/18/23 20:42 MCHC 30.1 g/dL (30-55) 08/18/23 20:42 RDW 17.2 % (12.1-15.1) H 08/18/23 20:42 Plt Count 285 10^3/cmm (157-399) 08/18/23 20:42 MPV 10.1 fL (7.4-10.4) 08/18/23 20:42 Neut % (Auto) 78.7 % 08/18/23 20:42 Lymph % (Auto) 13.4 % 08/18/23 20:42 Murray % (Auto) 4.6 % 08/18/23 20:42 Eos % (Auto) 1.7 % 08/18/23 20:42 Baso % (Auto) 0.2 % 08/18/23 20:42 Neut # (Auto) 9.14 10^3/uL (1.8-7.7) H 08/18/23 20:42 Lymph # (Auto) 1.6 10^3/uL (0.8-4.8) 08/18/23 20:42 Murray # (Auto) 0.5 10^3/uL (0.2-0.9) 08/18/23 20:42 Eos # (Auto) 0.2 10^3/uL (0.0-0.8) 08/18/23 20:42 Baso # (Auto) 0.0 10^3/uL (0.0-0.1) 08/18/23 20:42 Nucleated RBC % (auto) 0 % 08/18/23 20:42 Nucleated RBCs # 0.0 /100WBC 08/18/23 20:42 PT 12.20 SECONDS (12.1-14.9) 08/18/23 20:42 INR 0.88 (0.8-1.2) 08/18/23 20:42 APTT 24.0 SECONDS (23.9-36.7) 08/18/23 20:42 Fibrinogen 478 mg/dL (174-498) 08/18/23 20:42 D-Dimer 1.88 ug/mLFEU (0-0.59) H 08/18/23 20:42 Sodium 139 mmol/L (136-145) 08/18/23 20:42 Potassium 3.8 mmol/L (3.5-5.1) 08/18/23 20:42 Chloride 107 mmol/L (98-107) 08/18/23 20:42 Carbon Dioxide 22 mmol/L (22-29) 08/18/23 20:42 Anion Gap 12.9 (5-19) 08/18/23 20:42 BUN 6 mg/dL (6-20) 08/18/23 20:42 Creatinine 0.4 mg/dL (0.5-0.9) L 08/18/23 20:42 GFR Calculation 199.6 mL/min (90-130) H 08/18/23 20:42 Glucose 88 mg/dL (65-115) 08/18/23 20:42 Calculated Osmolality 281 mOsm/kg (285-295) L 08/18/23 20:42 Calcium 8.8 mg/dL (8.5-10.5) 08/18/23 20:42 Total Bilirubin 0.3 mg/dL (0.15-1.2) 08/18/23 20:42 AST 83 U/L (0-32) H 08/18/23 20:42 ALT 53 U/L (0-33) H 08/18/23 20:42 Alkaline Phosphatase 169 U/L (35-105) H 08/18/23 20:42 Total Protein 5.6 g/dL (6.6-8.7) L 08/18/23 20:42 Albumin 3.0 g/dL (3.5-5.2) L 08/18/23 20:42 Globulin 2.6 g/dL (1.3-4.6) 08/18/23 20:42 Ser , Semi-Qnt 516.40 mIU/mL 08/18/23 20:42 Urine Color Dark yellow (Yellow) 08/18/23 21:05 Urine Appearance Cloudy (CLEAR) A 08/18/23 21:05 Urine pH 6 (5-7) 08/18/23 21:05 Ur Specific [place] 1.020 (1.005-1.030) 08/18/23 21:05 Urine Protein Neg (Negative) 08/18/23 21:05 Urine Glucose (UA) Norm (Normal) 08/18/23 21:05 Urine Ketones Negative (Negative) 08/18/23 21:05 Urine Blood 3+ (Negative) H 08/18/23 21:05 Urine Nitrate Negative (Negative) 08/18/23 21:05 Urine Bilirubin Neg (Negative) 08/18/23 21:05 Urine Urobilinogen Neg mg/dL (Negative) 08/18/23 21:05 Ur Leukocyte Esterase 2+ (Negative) H 08/18/23 21:05 Urine RBC 25-40 /hpf (0-2) H 08/18/23 21:05 Urine WBC 15-25 /hpf (0-5) H 08/18/23 21:05 Ur Squamous Epith Cells 5-10 /hpf (0-5) H 08/18/23 21:05 Amorphous Sediment Not Reportable 08/18/23 21:05 Urine Bacteria 1+ /hpf (NONE) H 08/18/23 21:05 Blood Type A Positive 08/18/23 20:46 Rho(D) Type Rh positive 08/18/23 20:46 Antibody Screen Negative 08/18/23 20:46 All radiology interpretation(s) finalized by discharge Discharge Plan Discharge Patient Disposition: Home Clinical Impression: anemia Condition: Stable Prescriptions: No Action ibuprofen 800 mg Tablet 800 mg PO TID Qty: 45 0RF Vitamin 27 mg iron- 800 mcg Tablet 1 tab PO DAILY Qty: 90 0RF Discharge Orders: Discharge ED (Routine); Ordered 08/18/23 Ordered By: Duke Munguia Referrals: Minesh Chi MD [Primary Care Provider] - Discharge Diet: Usual diet Discharge Activity: Increase activity as tolerated Patient Instructions: Bleeding (ED) Activity Restrictions/Additional Instructions: Home and rest. Eat a healthy diet and drink plenty of fluids. Continue vitamin with iron daily. Follow-up in 2 days for recheck of blood and hemoglobin. Return to ER for lightheadedness or dizziness, feeling of passing out, saturating 1 pad or more an hour. Coding Level of Care Code ED Straightening Machine Feeder for Chg Fwd Documented by User: Eduardo Valdivia, DO 08/19/23 00:56 HPI - Female Genitourinary 2 General: Chief complaint: Urogenital-Female Stated complaint: just had a baby two days ago/passed large clot Time Seen by Provider: 08/18/23 20:30 PFSH ED 2 PFSH: Surgical History No pertinent past surgical history Family History Denies family history of Colon cancer Ovarian cancer Diabetes Heart disease Hypercholesteremia Breast cancer Hypertension Uterine cancer Stroke Social History Smoking and tobacco/nicotine status: current every day tobacco/nicotine user e- cigarettes E-Cigarette Details: vaporizer device and with nicotine Quit status (tobacco/nicotine): not considering quitting Second hand smoke exposure: No Alcohol intake: never Substance/Drug Use: never Adopted: Yes Lives independently: Yes Household members: other Housing: Manufactured/Mobile home Highest education level completed: 12th Grade, No Diploma service: No Current occupational status: unemployed Pets and animals: Yes Sexually active: Yes Do you think of yourself as: Straight/Heterosexual Current gender identity: Female Special sharon needs: No Course 2 Vital Signs: Vital signs: Vital Signs Temperature 98.7 F 08/18/23 20:16 Pulse Rate 84 08/18/23 23:23 Respiratory Rate 16 08/18/23 23:23 Blood Pressure 124/58 08/18/23 23:23 Pulse Oximetry 99 08/18/23 23:23 Oxygen Delivery Me thod Room Air 08/18/23 20:16 MDM - Female Medical Decision Making 23-year-old female comes in today for complaints of passing a large clot and some increased bleeding status post delivery of child 2 days ago. Patient delivered on morning and was discharged on Sunday morning. Patient's had no fever. Patient noticed a large clot being passed after getting up from a nap this afternoon. Patient denies any lightheadedness. Patient appears nontoxic. Skin is warm and dry. Vital signs are normal. Differential diagnosis hemorrhage, retained products of conception, uterine laceration, anemia. 2114, reviewed patient's hemoglobin which was 7.8 on today's blood draw. Prior hemoglobin was 9.4 on day of delivery. Reviewed this with Dr. Valdivia, attending ER physician, he believes that this may be a normal amount of blood loss after delivery but she would need to have a repeat blood draw within the next 48 hours. We will talk with patient regarding this at discharge. We are awaiting remainder of lab work and ultrasound. Orthostatic blood pressures were normal. Ultrasound was unremarkable did note some complex irregular imaging in the uterus which most likely is either blood clot or retained products of conception. We will add a quantitative hCG. Patient's bleeding has been normal throughout the ER stay with no significant blood loss. Reviewed exam with patient with recommendations for return to the ER for worsening bleeding greater than 1 pad an hour, fever greater than 100.4, or feeling like she is going to pass out. I also recommended patient have a repeat blood draw in 2 days to recheck her hemoglobin. Recommended patient to follow-up with her primary care or return to the ER for this testing. This patient was originally seen by FREDIS Argueta.? I agree with his history, evaluation, and treatment. Lab Data 08/18/23 20:42 08/18/23 20:42 Radiology Impressions Transvaginal US 08/18/23 20:38 IMPRESSION: 1. Inhomogenous material in the lower uterine endometrial cavity and endocervical canal. This could represent blood clot and/or retained products of conception. Correlation with quantitative HCG values recommended. Laboratory Results WBC 11.60 10^3/uL (3.29-11.43) H 08/18/23 20:42 RBC 3.55 10^6/uL (3.85-5.65) L 08/18/23 20:42 Hgb 7.80 g/dL (11.27-16.99) L 08/18/23 20:42 Hct 25.9 % (36-47) L 08/18/23 20: MCV 73.0 fl (85-98) L 08/18/23 20:42 MCH 22.0 pg (27-33) L 08/18/23 20: MCHC 30.1 g/dL (30-55) 08/18/23 20: RDW 17.2 % (12.1-15.1) H 08/18/23 20:42 Plt Count 285 10^3/cmm (157-399) 08/18/23 20: MPV 10.1 fL (7.4-10.4) 08/18/23 20: Neut % (Auto) 78.7 % 08/18/23 20: Lymph % (Auto) 13.4 % 08/18/23 20: Murray % (Auto) 4.6 % 08/18/23 20: Eos % (Auto) 1.7 % 08/18/23 20: Baso % (Auto) 0.2 % 08/18/23 20: Neut # (Auto) 9.14 10^3/uL (1.8-7.7) H 08/18/23 20: Lymph # (Auto) 1.6 10^3/uL (0.8-4.8) 08/18/23 20: [place] # (Auto) 0.5 10^3/uL (0.2-0.9) 08/18/23 20: Eos # (Auto) 0.2 10^3/uL (0.0-0.8) 08/18/23 20: Baso # (Auto) 0.0 10^3/uL (0.0-0.1) 08/18/23 20: Nucleated RBC % (auto) 0 % 08/18/23 20: Nucleated RBCs # 0.0 /100WBC 08/18/23 20:42 PT 12.20 SECONDS (12.1-14.9) 08/18/23 20:42 INR 0.88 (0.8-1.2) 08/18/23 20:42 APTT 24.0 SECONDS (23.9-36.7) 08/18/23 20:42 Fibrinogen 478 mg/dL (174-498) 08/18/23 20:42 D-Dimer 1.88 ug/mLFEU (0-0.59) H 08/18/23 20:42 Sodium 139 mmol/L (136-145) 08/18/23 20:42 Potassium 3.8 mmol/L (3.5-5.1) 08/18/23 20:42 Chloride 107 mmol/L (98-107) 08/18/23 20:42 Carbon Dioxide 22 mmol/L (22-29) 08/18/23 20:42 Anion Gap 12.9 (5-19) 08/18/23 20:42 BUN 6 mg/dL (6-20) 08/18/23 20:42 Creatinine 0.4 mg/dL (0.5-0.9) L 08/18/23 20:42 GFR Calculation 199.6 mL/min (90-130) H 08/18/23 20:42 Glucose 88 mg/dL (65-115) 08/18/23 20:42 Calculated Osmolality 281 mOsm/kg (285-295) L 08/18/23 20:42 Calcium 8.8 mg/dL (8.5-10.5) 08/18/23 20:42 Total Bilirubin 0.3 mg/dL (0.15-1.2) 08/18/23 20:42 AST 83 U/L (0-32) H 08/18/23 20:42 ALT 53 U/L (0-33) H 08/18/23 20:42 Alkaline Phosphatase 169 U/L (35-105) H 08/18/23 20:42 Total Protein 5.6 g/dL (6.6-8.7) L 08/18/23 20:42 Albumin 3.0 g/dL (3.5-5.2) L 08/18/23 20:42 Globulin 2.6 g/dL (1.3-4.6) 08/18/23 20:42 Ser , Semi-Qnt 516.40 mIU/mL 08/18/23 20:42 Urine Color Dark yellow (Yellow) 08/18/23 21:05 Urine Appearance Cloudy (CLEAR) A 08/18/23 21:05 Urine pH 6 (5-7) 08/18/23 21:05 Ur Specific [place] 1.020 (1.005-1.030) 08/18/23 21:05 Urine Protein Neg (Negative) 08/18/23 21:05 Urine Glucose (UA) Norm (Normal) 08/18/23 21:05 Urine Ketones Negative (Negative) 08/18/23 21:05 Urine Blood 3+ (Negative) H 08/18/23 21:05 Urine Nitrate Negative (Negative) 08/18/23 21:05 Urine Bilirubin Neg (Negative) 08/18/23 21:05 Urine Urobilinogen Neg mg/dL (Negative) 08/18/23 21:05 Ur Leukocyte Esterase 2+ (Negative) H 08/18/23 21:05 Urine RBC 25-40 /hpf (0-2) H 08/18/23 21:05 Urine WBC 15-25 /hpf (0-5) H 08/18/23 21:05 Ur Squamous Epith Cells 5-10 /hpf (0-5) H 08/18/23 21:05 Amorphous Sediment Not Reportable 08/18/23 21:05 Urine Bacteria 1+ /hpf (NONE) H 08/18/23 21:05 Blood Type A Positive 08/18/23 20:46 Rho(D) Type Rh positive 08/18/23 20:46 Antibody Screen Negative 08/18/23 20:46 Discharge Plan Discharge Patient Disposition: Home Clinical Impression: anemia Condition: Stable Prescriptions: No Action ibuprofen 800 mg Tablet 800 mg PO TID Qty: 45 0RF Vitamin 27 mg iron- 800 mcg Tablet 1 tab PO DAILY Qty: 90 0RF Discharge Orders: Discharge ED (Routine); Ordered 08/18/23 Ordered By: Duke Munguia Referrals: Minesh Chi MD [Primary Care Provider] - Discharge Diet: Usual diet Discharge Activity: Increase activity as tolerated Patient Instructions: Bleeding (ED) Activity Restrictions/Additional Instructions: Home and rest. Eat a healthy diet and drink plenty of fluids. Continue vitamin with iron daily. Follow-up in 2 days for recheck of blood and hemoglobin. Return to ER for lightheadedness or dizziness, feeling of passing out, saturating 1 pad or more an hour. Coding Level of Care Code ED Straightening Machine Feeder for Yaz Elizalde
[2023-08-18 20:58] VITALS: BP 116/64; BP 116/68; BP 119/68; PULSE 83; PULSE 85; PULSE 87
[2023-08-18 21:06] LABS: INR 0.88 (0.8-1.2)
[2023-08-18 21:07] VITALS: BP 119/68; PULSE 83; RESP 16; O2SAT 99
[2023-08-18 21:07] LABS: Fibrinogen 478 mg/dL (174-498)
[2023-08-18 21:10] LABS: D Dimer 1.88 ug/mLFEU (0-0.59)
[2023-08-18 21:16] LABS: Chloride 107 mmol/L (98-107); Potassium 3.8 mmol/L (3.5-5.1); Sodium 139 mmol/L (136-145)
[2023-08-18 21:27] LABS: Alanine Aminotransferase 53 U/L (0-33); Alkaline Phosphatase 169 U/L (35-105); Anion Gap 12.9 (5-19); Aspartate Amino Transferase 83 U/L (0-32); Blood Urea Nitrogen 6 mg/dL (6-20); Calcium 8.8 mg/dL (8.5-10.5); Carbon Dioxide 22 mmol/L (22-29); Creatinine Clr Calc Pharmacy 218.8086; Globulin 2.6 g/dL (1.3-4.6); Glomerular Filtration Rate 199.6 mL/min (90-130); Glucose 88 mg/dL (65-115); Osmolality Calculated 281 mOsm/kg (285-295); Total Bilirubin 0.3 mg/dL (0.15-1.2); Total Protein 5.6 g/dL (6.6-8.7)
[2023-08-18 21:39] LABS: Add Urine Culture? Yes; Add Urine Microscopic? YES; Bacteria Urine 1+ /hpf; Bilirubin Urine Neg (Negative); Blood Urine 3+ (Negative); Glucose Urine UA Norm (Normal); Ketones Urine Negative (Negative); Leukocyte Esterase Urine 2+ (Negative); Nitrate Urine Negative (Negative); Protein Urine Neg (Negative); RBC Urine 25-40 /hpf (0-2); Urine Appearance Cloudy (CLEAR); Urine Color Dark Yellow (Yellow); Urobilinogen Urine Neg (Negative); WBC Urine 15-25 /hpf (0-5); pH Urine 6 (5-7)
[2023-08-18 23:23] VITALS: BP 124/58; PULSE 84; RESP 16; O2SAT 99
== END 2023-08-18 23:26 | disposition home or self-care (01) ==
PROVIDERS: Emergency Provider Nurse Practitioner Family; PCP Family Medicine
DX: O90.81 Anemia of the puerperium (principal); D64.9 Anemia, unspecified; F17.290 Nicotine dependence, other tobacco product, uncomplicated
CPT/HCPCS: 76830; 80053; 81001; 84702; 85025; 85378; 85384; 85610; 85730; 86850; 86900; 87086; 99284

== ENCOUNTER → 2023-12-05 09:04 | Outpatient (BNVA) | payer MEDICAID, SELFPAY | PROVIDERS: PCP Family Medicine; Visit Provider Obstetrics & Gynecology | DX: Z01.419 Encounter for gynecological examination (general) (routine) without abnormal findings (principal) | CPT/HCPCS: 87624 ==

== ENCOUNTER 2024-01-07 14:29 | Emergency (ER) | payer MEDICAID, SELFPAY ==
[2024-01-07 14:35] VITALS: BP 109/91; PULSE 85; RESP 16; TEMP 36.9; O2SAT 100
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
[2024-01-07 15:39] VITALS: BP 104/65; PULSE 81; RESP 18; O2SAT 93
[2024-01-07 15:42] LABS: Basophils # 0.1 10^3/uL (0.0-0.1); Basophils % 0.5 %; Eosinophils # 0.1 10^3/uL (0.0-0.8); Eosinophils % 0.6 %; Hematocrit 42.5 % (36-47); Lymphocytes # 1.9 10^3/uL (0.8-4.8); Lymphocytes % 12.2 %; Mean Corpuscular HGB Conc 31.8 g/dL (30-55); Mean Corpuscular Hemoglobin 25.5 pg (27-33); Mean Corpuscular Volume 80.3 fl (85-98); Mean Platelet Volume 10.8 fL (7.4-10.4); Monocytes # 0.9 10^3/uL (0.2-0.9); Monocytes % 5.8 %; Neutrophils # 12.34 10^3/uL (1.8-7.7); Neutrophils % 80.3 %; Nucleated Red Blood Cells % 0 %; Platelet Count 322 10^3/cmm (157-399); Red Blood Count 5.29 10^6/uL (3.85-5.65); Red Cell Distribution Width 18.1 % (12.1-15.1); White Blood Count 15.35 10^3/uL (3.29-11.43)
[2024-01-07] MEDS: sodium chloride 0.9% 1,000 ML 999 ML IV (15:56)
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
[2024-01-07 16:06] LABS: Alanine Aminotransferase 111 U/L (0-33); Albumin Level 4.1 g/dL (3.5-5.2); Alkaline Phosphatase 93 U/L (35-105); Anion Gap 12.9 (5-19); Aspartate Amino Transferase 95 U/L (0-32); Blood Urea Nitrogen 7 mg/dL (6-20); Calcium 8.5 mg/dL (8.5-10.5); Carbon Dioxide 24 mmol/L (22-29); Chloride 106 mmol/L (98-107); Creatinine Clr Calc Pharmacy 204.2763; Globulin 3.3 g/dL (1.3-4.6); Glomerular Filtration Rate 199.6 mL/min (90-130); Glucose 85 mg/dL (65-115); Osmolality Calculated 285 mOsm/kg (285-295); Potassium 3.9 mmol/L (3.5-5.1); Sodium 139 mmol/L (136-145); Total Bilirubin 0.6 mg/dL (0.15-1.2); Total Protein 7.4 g/dL (6.6-8.7)
[2024-01-07 16:07] LABS: HCG, Serum Qual Negative (Negative)
[2024-01-07 16:10] LABS: Alcohol Level < 10 mg/dL (0-10)
[2024-01-07 16:11] LABS: Amphetamines Screen Urine Negative (Negative); Barbiturates Screen Urine Negative (Negative); Benzodiazepines Screen Urine Negative (Negative); Cocaine Screen Urine Negative (Negative); Opiate Screen Urine Negative (Negative); PCP Screen Urine Negative (Negative); THC Screen Urine Positive (Negative)
[2024-01-07] MEDS: iohexol 350 mg/mL 500 mL Btl (per mL) IV (16:33)
[2024-01-07 16:59] VITALS: BP 120/92; PULSE 92; RESP 16; O2SAT 98
[2024-01-07 17:30] VITALS: BP 120/92; PULSE 91; RESP 16; O2SAT 98
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
[2024-01-07 20:05] VITALS: BP 159/81; PULSE 93; RESP 25; O2SAT 96
== END 2024-01-07 20:00 ==
PROVIDERS: Physician Assistant; Emergency Provider Physician Assistant; PCP Family Medicine
DX: G83.10 Monoplegia of lower limb affecting unspecified side (principal); V89.2XXA Person injured in unspecified motor-vehicle accident, traffic, initial encounter
CPT/HCPCS: 36415; 70450; 71260; 72125; 72128; 72131; 73562; 74177; 80053; 80306; 80307; 84703; 85025; 96360; 96361; 99285; J7030